=== PATIENT | female | born 1955 | race Caucasian/White ===

== ENCOUNTER 2019-03-15 05:51 | Emergency (ER) | payer OTHER ==
[~2019-03-15] VITALS: Ht 167.6 cm; Wt 70.5 kg
[2019-03-15] MEDS ORDERED: LISI-538 PO (05:57)
[2019-03-15] MEDS ORDERED: NS 500 ML IV ONE (06:30)
[2019-03-15] MEDS: GASTROGRAFIN SOLUTION 30ML PO SCH ×2 (07:11→07:43)
[2019-03-15 07:34] LABS: ALBUMIN 3.6 GM/DL (3.2-5.2); ALT/SGPT 28 U/L (12-78); BILIRUBIN,DIRECT 0.1 MG/DL (0.0-0.2); BILIRUBIN,TOTAL 0.5 MG/DL (0.2-1.0); BLOOD UREA NITROGEN 22 MG/DL (7-18); CALCIUM LEVEL 8.9 MG/DL (8.8-10.2); CARBON DIOXIDE LEVEL 27 MEQ/L (21-32); CHLORIDE LEVEL 103 MEQ/L (98-107); CREATININE FOR GFR 0.86 MG/DL (0.55-1.30); GLOMERULAR FILTRATION RATE > 60.0 (>45); GLUCOSE, FASTING 108 MG/DL (70-100); LIPASE 73 U/L (73-393); POTASSIUM SERUM 4.1 MEQ/L (3.5-5.1); SODIUM LEVEL 140 MEQ/L (136-145); TOTAL PROTEIN 7.3 GM/DL (6.4-8.2)
[2019-03-15 07:58] LABS: BASO % 0.3 % (0.0-1.0); EOS # 0.1 10^3/uL (0.0-0.5); EOS % 0.4 % (0.0-3.0); HEMATOCRIT 45.7 % (36.0-47.0); HEMOGLOBIN 14.5 g/dl (12.0-15.5); LYMPH # 1.3 10^3/uL (1.5-5.0); LYMPH % 9.5 % (24.0-44.0); MEAN CORPUSCULAR HEMOGLOBIN 30.7 pg (27.0-33.0); MEAN CORPUSCULAR HGB CONC 31.7 g/dl (32.0-36.5); MEAN CORPUSCULAR VOLUME 96.8 fl (80.0-96.0); MONO # 0.8 10^3/uL (0.0-0.8); MONO % 5.9 % (0.0-5.0); NEUTROPHILS # 11.8 10^3/uL (1.5-8.5); NEUTROPHILS % 83.5 % (36.0-66.0); PLATELET COUNT, AUTOMATED 257 10^3/uL (150-450); RED BLOOD COUNT 4.72 10^6/uL (4.00-5.40); WHITE BLOOD COUNT 14.1 10^3/uL (4.0-10.0)
[2019-03-15] MEDS ORDERED: ISOVUE-370 76% 100ML VIAL (Q9967) As Ordered ONE (07:58)
[2019-03-15 08:10] LABS: INR 1.04; PROTHROMBIN TIME 13.4 SECONDS (11.8-14.0)
[2019-03-15 08:11] LABS: PARTIAL THROMBOPLASTIN TIME 33.8 SECONDS (25.0-38.4)
--- NOTE | 2019-03-15 08:59 | REP ---
CT abdomen and pelvis with IV and oral contrast: History: Rectal bleeding. No comparison study. CT contrast dose: 100 mL of intravenous Isovue 370. CT findings: Digital preliminary psych rn radiograph is unremarkable. Normal bowel gas pattern. The lung bases are clear except for some mild linear plate-like atelectasis versus fibrosis. No pleural effusion is seen. There is a 1.1 cm cyst in the left lobe of the liver. The liver is otherwise homogeneous in texture and normal in size. Spleen is unremarkable. No adrenal lesion is seen. No abnormalities noted in the pancreas or in the gallbladder. There are tiny cortical cysts in the kidneys. There is no evidence of hydronephrosis. The kidneys enhance symmetrically and are otherwise morphologically intact. No retroperitoneal mass or adenopathy is observed. No uterine or ovarian abnormality is seen. Urinary bladder is intact. A normal short appendix is seen in the right lower quadrant. Small bowel loops are unremarkable. There is moderate mural thickening and pericolonic streaking is seen throughout the descending colon and sigmoid colon consistent with enterocolitis. No obstructive lesion is seen. There is no evidence of diverticulosis. No evidence of free air or abnormal fluid collection. Study is otherwise unremarkable. No abdominal wall defect or bony destructive lesion. Impression: Moderate mural thickening and pericolonic streaking throughout the left colon consistent with enterocolitis. Electronically Signed by Leoncio Hernández MD 03/15/2019 12:36 P
[2019-03-15] MEDS ORDERED: NS 1,000 ML IV ONE (09:00)
[2019-03-15] MEDS ORDERED: CIPROFLOXACIN 500 MG TAB PO ONE (09:45)
[2019-03-15] MEDS ORDERED: metroNIDAZOLE (FLAGYL) 500 MG TAB PO ONE (09:45)
[2019-03-15 10:14] VITALS: BP 134/67
[2019-03-15] MEDS ORDERED: FLAG500T PO (10:52)
[2019-03-15] MEDS ORDERED: CIPR-249 PO (10:52)
== END 2019-03-15 11:05 | disposition home or self-care (01) ==
LOC: M ED 05:51
DX: K62.5 Hemorrhage of anus and rectum (principal); R10.32 Left lower quadrant pain; K52.9 Noninfective gastroenteritis and colitis, unspecified; I10 Essential (primary) hypertension; Z79.899 Other long term (current) drug therapy
CPT/HCPCS: 36415; 74177; 80048; 80076; 83605; 83690; 85025; 85610; 85730; 86850; 86900; 86901; 87507; 96360; 96361; 99284; Q9963; Q9967

== ENCOUNTER → 2019-09-19 | Outpatient (REF) | payer OTHER ==
[~2019-09-19] MED LIST: CIPR-249 PO; FLAG500T PO; LISI-538 PO
== END ==
LOC: M LAB REF 17:45
PROVIDERS: ATTEND Physician Assistant
DX: B07.9 Viral wart, unspecified (principal)

== ENCOUNTER 2020-05-19 09:06 | Emergency (ER) | payer OTHER ==
[~2020-05-19] VITALS: Ht 167.6 cm; Wt 69.3 kg
[~2020-05-19 09:06] MED LIST changes: -LISI-538 PO; +LISI20TA33 PO
--- OUTSIDE RECORDS SUMMARY | 2020-05-19 09:12 | CCD ---
Author Author [facility] [employer] [facility] [employer] Organization [facility] [place] [employer] Address Unknown Phone Unavailable Care Team Providers Care Party Plan Sales Agent Name Role Phone Kaci Kline Unavailable PROBLEMS Type Condition ICD9-CM Code [id number] Code Onset Dates Condition S tatus SNOMED Code Notes Problem Esophageal reflux 530.81 Active 930507573 Problem Unspecified essential hypertension 401.9 Activ e [id number] Suboptimally controlled. I advised Jessica that if just running around causes her blood pressure to be elevated, she likely is spending quite a bit of time with elevated blood pressure. I've asked her to increase her lisinopril 20 mg tablets to one and one half daily, come in in a few weeks for a courtesy blood pressure check, and revisit in 3 months ALLERGIES No Known Allergies ENCOUNTERS from 1957 to 2020-04-17 Encounter Location Date Provider Diagnosis [facility] [address] [address] Apr, Kaci Kline IMMUNIZATIONS No Information SOCIAL HISTORY Tobacco Use: Social History Observation Description Date Details (start date - stop date) Never Smoker Sex Assigned At : Social History Observation Description Sex Assigned At Unknown Tobacco Use: Question Answer Notes Are you a: never smoker REASON FOR REFERRAL No Information VITAL SIGNS No information MEDICATIONS Medication SIG (Take, Route, Frequency, Duration) Notes Start Da te End Date Status Ammonium Lactate 12 % 1 application Externally Twice a day Jan, Active Lisinopril 20 mg 1-1/2 tablets Orally Once a day for 90 day(s) Active Omeprazole 40 MG 1 capsule Orally Once a day for 30 day(s) Not-Taking Ammonium Lactate 12 % 1 application Externally Cuong ly once daily to damp skin on the legs for 30 days Jan, Active PROCEDURES No Information RESULTS No Results REASON FOR VISIT EYE LIFT MEDICAL (GENERAL) HISTORY Type Description Date Medical History hypertension Medical History GERD Medical History question of trigeminal neuralgia Surgical History No Surgical history information Goals Section No Information Health Concerns No Information MEDICAL EQUIPMENT No Information MENTAL STATUS No Information FUNCTIONAL STATUS No Information ASSESSMENTS No Information PLAN OF TREATMENT Medication Medication Name Sig Start Date Stop Date Ammonium Lactate 12 % 1 application Externally Cuong ly once daily to damp skin on the legs for 30 days Jan, Ammonium Lactate 12 % 1 application Externally Twice a day 16 2019 Next Appt Details Provider Name:Kaci Kline, 10:30:00 AM, [address] [facility], [address], [place], [address], Insurance Providers Payer Name Payer Address Payer Phone Insured Name Patient Relati onship to Insured Coverage Start Date Coverage End Date [employer] DEPT [address] [phone] JESSICA CHAPA
--- OUTSIDE RECORDS SUMMARY | 2020-05-19 09:12 | CCD ---
Author Author [facility] Organization [facility] Address Unknown Phone Unavailable Care Team Providers Care Patrol Mother Name Role Phone BANKS, JONA ANDRES PLUMBING INSPECTOR Unavailable Unavailable BANKS, JONA ANDRES PLUMBING INSPECTOR Unavailable Unavailable BANKS, JONA ANDRES PLUMBING INSPECTOR Unavailable Unavailable BANKS, JONA ANDRES PLUMBING INSPECTOR Unavailable Unavailable BANKS, JONA ANDRES PLUMBING INSPECTOR Unavailable Unavailable BANKS, JONA ANDRES PLUMBING INSPECTOR Unavailable Unavailable BANKS, JONA ANDRES PLUMBING INSPECTOR Unavailable Unavailable BANKS, JONA ANDRES PLUMBING INSPECTOR Unavailable Unavailable BANKS, JONA ANDRES PLUMBING INSPECTOR Unavailable Unavailable BANKS, JONA ANDRES PLUMBING INSPECTOR Unavailable Unavailable BANKS, JONA ANDRES PLUMBING INSPECTOR Unavailable Unavailable BANKS, JONA ANDRES PLUMBING INSPECTOR Unavailable Unavailable BANKS, JONA ANDRES PLUMBING INSPECTOR Unavailable Unavailable BANKS, JONA ANDRES PLUMBING INSPECTOR Unavailable Unavailable BANKS, JONA ANDRES PLUMBING INSPECTOR Unavailable Unavailable BANKS, JONA ANDRES PLUMBING INSPECTOR Unavailable Unavailable BANKS, JONA ANDRES PLUMBING INSPECTOR Unavailable Unavailable BANKS, JONA ANDRES PLUMBING INSPECTOR Unavailable Unavailable BANKS, JONA ANDRES PLUMBING INSPECTOR Unavailable Unavailable BANKS, JONA ANDRES PLUMBING INSPECTOR Unavailable Unavailable BANKS, OJNA ANDRES PLUMBING INSPECTOR Unavailable Unavailable BANKS, JONA ANDRES PLUMBING INSPECTOR Unavailable Unavailable BANKS, JONA ANDRES PLUMBING INSPECTOR Unavailable Unavailable CHARLES CARRILLO CDN, RD Unavailable CHARLES CARRILLO CDN, RD Unavailable CHARLES CARRILLO CDN, RD Unavailable Law, Reyna PLUMBING INSPECTOR Unavailable Unavailable Law, Reyna PLUMBING INSPECTOR Unavailable Unavailable Law, Reyna PLUMBING INSPECTOR Unavailable Unavailable Law, Reyna PLUMBING INSPECTOR Unavailable Unavailable Law, Reyna PLUMBING INSPECTOR Unavailable Unavailable Law, Reyna PLUMBING INSPECTOR Unavailable Unavailable Law, Reyna PLUMBING INSPECTOR Unavailable Unavailable Law, Reyna PLUMBING INSPECTOR Unavailable Unavailable Law, Reyna PLUMBING INSPECTOR Unavailable Unavailable Law, Reyna PLUMBING INSPECTOR Unavailable Unavailable Law, Reyna PLUMBING INSPECTOR Unavailable Unavailable Law, Reyna PLUMBING INSPECTOR Unavailable Unavailable Law, Reyna PLUMBING INSPECTOR Unavailable Unavailable Law, Reyna PLUMBING INSPECTOR Unavailable Unavailable Law, Reyna PLUMBING INSPECTOR Unavailable Unavailable Law, Reyna PLUMBING INSPECTOR Unavailable Unavailable Law, Reyna PLUMBING INSPECTOR Unavailable Unavailable Law, Reyna PLUMBING INSPECTOR Unavailable Unavailable Law, Reyna PLUMBING INSPECTOR Unavailable Unavailable Law, Reyna PLUMBING INSPECTOR Unavailable Unavailable Law, Reyna PLUMBING INSPECTOR Unavailable Unavailable Law, Reyna PLUMBING INSPECTOR Unavailable Unavailable Law, Reyna PLUMBING INSPECTOR Unavailable Unavailable Law, Reyna PLUMBING INSPECTOR Unavailable Unavailable Law, Reyna PLUMBING INSPECTOR Unavailable Unavailable Law, Reyna PLUMBING INSPECTOR Unavailable Unavailable Law, Reyna PLUMBING INSPECTOR Unavailable Unavailable Law, Reyna PLUMBING INSPECTOR Unavailable Unavailable Rg, P Joon DO Unavailable Unavailable Rg, P Joon DO Unavailable Unavailable Rg, P Joon DO Unavailable Unavailable Rg, P Joon DO Unavailable Unavailable Rg, P Joon DO Unavailable Unavailable Rg, P Joon DO Unavailable Unavailable Rg, P Joon DO Unavailable Unavailable Rg, P Joon DO Unavailable Unavailable Rg, P Joon DO Unavailable Unavailable Rg, P Joon DO Unavailable Unavailable Rg, P Joon DO Unavailable Unavailable Rg, P Joon DO Unavailable Unavailable Rg, P Joon DO Unavailable Unavailable Rg, P Joon DO Unavailable Unavailable Rg, P Joon DO Unavailable Unavailable Rg, P Joon DO Unavailable Unavailable Rg, P Joon DO Unavailable Unavailable Rg, P Joon DO Unavailable Unavailable Rg, P Joon DO Unavailable Unavailable Rg, P Joon DO Unavailable Unavailable Rg, P Joon DO Unavailable Unavailable Rg, P Joon DO Unavailable Unavailable Rg, P Joon DO Unavailable Unavailable Rg, P Joon DO Unavailable Unavailable Rg, P Joon DO Unavailable Unavailable Rg, P Joon DO Unavailable Unavailable Rg, P Joon DO Unavailable Unavailable Rg, P Joon DO Unavailable Unavailable Rg, P Joon DO Unavailable Unavailable Rg, P Joon DO Unavailable Unavailable Rg, P Joon DO Unavailable Unavailable Rg, P Joon DO Unavailable Unavailable Rg, P Joon DO Unavailable Unavailable Rg, P Joon DO Unavailable Unavailable Rg, P Joon DO Unavailable Unavailable Rg, P Joon DO Unavailable Unavailable Rg, P Joon DO Unavailable Unavailable Rg, P Joon DO Unavailable Unavailable Rg, P Joon DO Unavailable Unavailable Rg, P Joon DO Unavailable Unavailable Rg, P Joon DO Unavailable Unavailable Rg, P Joon DO Unavailable Unavailable Rg, P Joon DO Unavailable Unavailable Rg, P Joon DO Unavailable Unavailable Rg, P Joon DO Unavailable Unavailable Rg, P Joon DO Unavailable Unavailable Rg, P Joon DO Unavailable Unavailable Rg, P Joon DO Unavailable Unavailable Rg, P Joon DO Unavailable Unavailable Rg, P Joon DO Unavailable Unavailable Rg, P Joon DO Unavailable Unavailable Rg, P Joon DO Unavailable Unavailable Rg, P Joon DO Unavailable Unavailable Rg, P Joon DO Unavailable Unavailable Rg, P Joon DO Unavailable Unavailable Rg, P Joon DO Unavailable Unavailable Rg, P Joon DO Unavailable Unavailable Rg, P Joon DO Unavailable Unavailable Rg, P Joon DO Unavailable Unavailable Rg, P Joon DO Unavailable Unavailable Rg, P Joon DO Unavailable Unavailable Rg, P Joon DO Unavailable Unavailable Rg, P Joon DO Unavailable Unavailable Rg, P Joon DO Unavailable Unavailable Rg, P Joon DO Unavailable Unavailable Rg, P Joon DO Unavailable Unavailable Rg, P Joon DO Unavailable Unavailable Rg, P Joon DO Unavailable Unavailable BANKS, JONA ANDRES PLUMBING INSPECTOR Unavailable Unavailable BANKS, JONA ANDRES PLUMBING INSPECTOR Unavailable Unavailable BANKS, JONA ANDRES PLUMBING INSPECTOR Unavailable Unavailable BANKS, JONA ANDRES PLUMBING INSPECTOR Unavailable Unavailable BANKS, JONA ANDRES PLUMBING INSPECTOR Unavailable Unavailable BANKS, JONA ANDRES PLUMBING INSPECTOR Unavailable Unavailable BANKS, JONA ANDRES PLUMBING INSPECTOR Unavailable Unavailable BANKS, JONA ANDRES PLUMBING INSPECTOR Unavailable Unavailable BANKS, JONA ANDRES PLUMBING INSPECTOR Unavailable Unavailable BANKS, JONA ANDRES PLUMBING INSPECTOR Unavailable Unavailable BANKS, JONA ANDRES PLUMBING INSPECTOR Unavailable Unavailable BANKS, JONA ANDRES PLUMBING INSPECTOR Unavailable Unavailable BANKS, JONA ANDRES PLUMBING INSPECTOR Unavailable Unavailable BANKS, JONA ANDRES PLUMBING INSPECTOR Unavailable Unavailable BANKS, JONA ANDRES PLUMBING INSPECTOR Unavailable Unavailable BANKS, JONA ANDRES PLUMBING INSPECTOR Unavailable Unavailable BANKS, JONA ANDRES PLUMBING INSPECTOR Unavailable Unavailable BANKS, JONA ANDRES PLUMBING INSPECTOR Unavailable Unavailable BANKS, JONA ANDRES PLUMBING INSPECTOR Unavailable Unavailable BANKS, JONA ANDRES PLUMBING INSPECTOR Unavailable Unavailable BANKS, JONA ANDRES PLUMBING INSPECTOR Unavailable Unavailable BANKS, JONA ANDRES PLUMBING INSPECTOR Unavailable Unavailable BANKS, JONA ANDRES PLUMBING INSPECTOR Unavailable Unavailable Maring, Kevin PA Unavailable Unavailable Maring, Kevin PA Unavailable Unavailable Maring, Kevin PA Unavailable Unavailable Maring, Kevin PA Unavailable Unavailable Maring, Kevin PA Unavailable Unavailable Maring, Kevin PA Unavailable Unavailable Maring, Kevin PA Unavailable Unavailable Maring, Kevin PA Unavailable Unavailable Maring, Kevin PA Unavailable Unavailable Maring, Kevin PA Unavailable Unavailable Maring, Kevin PA Unavailable Unavailable Maring, Kevin PA Unavailable Unavailable Maring, Kevin PA Unavailable Unavailable Maring, Kevin PA Unavailable Unavailable Law, Reyna PLUMBING INSPECTOR Unavailable Unavailable Law, Reyna PLUMBING INSPECTOR Unavailable Unavailable Law, Reyna PLUMBING INSPECTOR Unavailable Unavailable Law, Reyna PLUMBING INSPECTOR Unavailable Unavailable Law, Reyna PLUMBING INSPECTOR Unavailable Unavailable Law, Reyna PLUMBING INSPECTOR Unavailable Unavailable Law, Reyna PLUMBING INSPECTOR Unavailable Unavailable Law, Reyna PLUMBING INSPECTOR Unavailable Unavailable Law, Ryena PLUMBING INSPECTOR Unavailable Unavailable Law, Reyna PLUMBING INSPECTOR Unavailable Unavailable Law, Reyna PLUMBING INSPECTOR Unavailable Unavailable Law, Reyna PLUMBING INSPECTOR Unavailable Unavailable Law, Reyna PLUMBING INSPECTOR Unavailable Unavailable Law, Reyna PLUMBING INSPECTOR Unavailable Unavailable Law, Reyna PLUMBING INSPECTOR Unavailable Unavailable Law, Reyna PLUMBING INSPECTOR Unavailable Unavailable Law, Reyna PLUMBING INSPECTOR Unavailable Unavailable Law, Reyna PLUMBING INSPECTOR Unavailable Unavailable Law, Reyna PLUMBING INSPECTOR Unavailable Unavailable Law, Reyna PLUMBING INSPECTOR Unavailable Unavailable Law, Reyna PLUMBING INSPECTOR Unavailable Unavailable Law, Reyna PLUMBING INSPECTOR Unavailable Unavailable Law, Reyna PLUMBING INSPECTOR Unavailable Unavailable Law, Reyna PLUMBING INSPECTOR Unavailable Unavailable Law, Reyna PLUMBING INSPECTOR Unavailable Unavailable Law, Reyna PLUMBING INSPECTOR Unavailable Unavailable Law, Reyna PLUMBING INSPECTOR Unavailable Unavailable Law, Reyna PLUMBING INSPECTOR Unavailable Unavailable Re-disclosure Warning The records that you are about to access may contain information from federally-assisted alcohol or drug abuse programs. If such information is present, then the following federally mandated warning applies: This information has been disclosed to you from records protected by federal confidentiality rules (42 CFR part 2). The federal rules prohibit you from making any further disclosure of this information unless further disclosure is expressly permitted by the written consent of the person to whom it pertains or as otherwise permitted by 42 CFR part 2. A general authorization for the release of medical or other information is NOT sufficient for this purpose. The Federal rules restrict any use of the information to criminally investigate or prosecute any alcohol or drug abuse patient.The records that you are about to access may contain highly sensitive health information, the redisclosure of which is protected by Article 27-F of the [facility] Public Health law. If you continue you may have access to information: Regarding HIV / AIDS; Provided by facilities licensed or operated by the [facility] Office of Mental Health; or Provided by the [facility] Office for People With Developmental Disabilities. If such information is present, then the following [facility] mandated warning applies: This information has been disclosed to you from confidential records which are protected by state law. State law prohibits you from making any further disclosure of this information without the specific written consent of the person to whom it pertains, or as otherwise permitted by law. Any unauthorized further disclosure in violation of state law may result in a fine or halfway sentence or both. A general authorization for the release of medical or other information is NOT sufficient authorization for further disc losure. Allergies and Adverse Reactions Type Description Substance Reaction Status Data Source(s ) No Known Allergies No Known Allergies [facility] SYSTEMIC NO ALLERGIES ON FILE NO ALLERGIES ON FILE [facility] Family History Family Member Name Family Member Gender Family Member Status Date o f Status Description Data Source(s) Unknown Male Problem [facility]ENT ([facility]) Encounters Encounter Providers Location Date Indications Data Source(s ) O Attender: Kevin RAINES 05/19/19 08:23:28 AM EST - 05/19/2020 08:44:33 AM EST [facility] ([facility] ) O Attender: Kevin RAINES 05/16/19 09:04:35 AM EST - 05/16/2020 09:28:06 AM EST [facility] ([facility] ) [place] [address] [facility] [address] 04/14/2020 12:00:00 AM EST eCW1 ([facility]) Out[place] [address] [facility] [facility] [address] 02/16/2020 12:00:00 AM EST eCW1 ([facility]) Outpatient Attender: CHARLES CARRILLO CDN, RDConsultant: Joon Diez DO 11/24/2019 12:47:00 PM EDT - 11/24/2019 12:47:00 PM EDT [facility] Outpatient Attender: ANDRES BANKS NP Family [facility] 11/04/2019 09 :00:00 AM EDT MEDENT ([facility]) Outpatient Attender: ANDRES BANKS NPConsultant: Joon Diez DO 11/04/2019 08:54:00 AM EDT - 11/04/2019 08:54:00 AM EDT [facility] Outpatient [address] [facility] [address] 09/19/2019 12:00:00 AM EDT eCW1 ([facility]) Outpatient Attender: Reyna Ogden NP 09/15/2019 09:22:[address] [facility] E07.89 OUTPATIENT Attender: Reyna Ogden NPReferrer: Reyna Ogden NP [id number] 06/06/2019 01:18:00 PM EST - 06/06/2019 11:59:00 PM EST [facility] Patient discharged. 06/06/2019 01:17:55 PM [facility] Attender: Reyna Ogden NP [id number] 06/06/2019 01:10:32 PM EST [facility] 06/06/2019 01:10:22 PM [facility] Outpatient Attender: Reyna Ogden NP 06/04/2019 07:16 :00 AM EST Z13.220,Z76.89,R53.82,E78.5,I10,Z13.1 [facility] Z13.220,Z76.89,R53.82,E78.5,I10,Z13.1 Outpatient Attender: ANDRES BANKS NP 05/20/2019 11:52:[address] [facility] N76.0 Outpatient Attender: ANDRES BANKS NPConsultant: Joon Diez DO 05/20/2019 10:33:00 AM EST - 05/20/2019 10:33:00 AM EST [facility] Outpatient Attender: ANDRES BANKS PLUMBING INSPECTOR Family Practice 05/20/2019 09 :30:00 AM EST MEDENT ([facility]) Outpatient 04/01/2019 06:26:00 AM EST [facility] Medications Medication Brand Name Start Date Product Form Dose Route Admi nistrative Instructions Pharmacy Instructions Status Indications Reaction Description Data Source(s) 100 mg 05/16/2020 12:00:00 AM EST capsule 14 TAKE ONE CAPSULE BY MOUTH TWO TIMES A DAY FOR 7 DAYS TAKE ONE CAPSULE BY MOUTH TWO TIMES A DAY FOR 7 DAYS SOLD: 05/16/2020 [facility] 200 mg 05/16/2020 12:00:00 AM EST tablet 6 TAKE ONE TABLET BY MOUTH THREE TIMES A DAY FOR 2 DAYS TAKE ONE TABLET BY MOUTH THREE TIMES A DAY FOR 2 DAYS SOLD: 05/16/2020 [facility] 8 mg 05/16/2020 12:00:00 AM EST tablet,disintegrating [address] ONE TABLET UNDER THE TONGUE THREE TIMES A DAY FOR [address] ONE TABLET UNDER THE TONGUE THREE TIMES A DAY FOR 5 DAYS SOLD: 05/16/2020 [facility] 20 mg 04/30/2020 12:00:00 AM EST tablet 30 TAKE ONE TABLET BY MOUTH ONCE DAILY TAKE ONE TABLET BY MOUTH ONCE DAILY SOLD: 05/06/2020 [facility] 500 mg 03/09/2020 12:00:00 AM EST tablet 60 TAKE TWO TABLETS BY MOUTH TWICE A DAY NEEDED TAKE TWO TABLETS BY MOUTH TWICE A DAY NEEDED SOLD: 03/11/2020 [facility] 1,250 mcg (50,000 unit) 03/09/2020 12:00:00 AM EST capsule 4 TAKE 1 CAPSULES BY MOUTH WEEKLY WITH FOOD TAKE 1 CAPSULES BY MOUTH WEEKLY WITH FOOD SOLD: 03/11/2020 [facility] 12 % 02/17/2020 12:00:00 AM EST lotion 226 APPLY 1 APPLICATION ONCE DAILY TO DAMP SKIN ON THE LEGS FOR 30 DAYS APPLY 1 APPLICATION ONCE DAILY TO DAMP S KIN ON THE LEGS FOR 30 DAYS SOLD: 02/19/2020 [facility] ammonium lactate 120 MG/ML Topical Lotion Ammonium [place] k[place] 12 % Ammonium Lactate 12 % 02/16/2020 12:00:00 AM EST 1.0 {application} active Ammonium Lactate 12 % eCW1 ([facility]) ammonium lactate 120 MG/ML Topical Lotion Ammonium [place] 12 % Ammonium Lactate 12 % 02/16/2020 12:00:00 AM EST 1.0 {application} active Ammonium Lactate 12 % eCW1 ([facility]) ammonium lactate 120 MG/ML Topical Lotion Ammonium [place] 12 % Ammonium Lactate 12 % 02/16/2020 12:00:00 AM EST 1.0 {application} active Ammonium Lactate 12 % eCW1 ([facility]) ammonium lactate 120 MG/ML Topical Lotion Ammonium [place] 12 % Ammonium Lactate 12 % 02/16/2020 12:00:00 AM EST 1.0 {application} active Ammonium Lactate 12 % eCW1 ([facility]) 20 mg 01/16/2020 12:00:00 AM EDT tablet 30 TAKE ONE TABLET BY MOUTH ONCE DAILY TAKE ONE TABLET BY MOUTH ONCE DAILY SOLD: 02/19/2020 [facility] 20 mg 01/16/2020 12:00:00 AM EDT tablet 30 TAKE ONE TABLET BY MOUTH ONCE DAILY TAKE ONE TABLET BY MOUTH ONCE DAILY SOLD: 03/16/2020 [facility] 20 mg 01/16/2020 12:00:00 AM EDT tablet 30 TAKE ONE TABLET BY MOUTH ONCE DAILY TAKE ONE TABLET BY MOUTH ONCE DAILY SOLD: 01/19/2020 [facility] 1 gram 09/22/2019 12:00:00 AM EDT tablet 60 TAKE ONE TABLET BY MOUTH TWICE A DAY ON AN EMPTY STOMACH TAKE ONE TABLET BY MOUTH TWICE A DAY ON AN EMPTY STOMACH SOLD: 09/24/2019 [facility] 20 mg 06/07/2019 12:00:00 AM EST tablet 30 TAKE ONE TABLET BY MOUTH EVERY DAY TAKE ONE TABLET BY MOUTH EVERY DAY SOLD: 12/07/2019 [facility] 20 mg 06/07/2019 12:00:00 AM EST tablet 30 TAKE ONE TABLET BY MOUTH EVERY DAY TAKE ONE TABLET BY MOUTH EVERY DAY SOLD: 06/08/2019 [facility] 20 mg 06/07/2019 12:00:00 AM EST tablet 30 TAKE ONE TABLET BY MOUTH EVERY DAY TAKE ONE TABLET BY MOUTH EVERY DAY SOLD: 10/26/2019 [facility] 20 mg 06/07/2019 12:00:00 AM EST tablet 30 TAKE ONE TABLET BY MOUTH EVERY DAY TAKE ONE TABLET BY MOUTH EVERY DAY SOLD: 07/18/2019 [facility] 20 mg 06/07/2019 12:00:00 AM EST tablet 30 TAKE ONE TABLET BY MOUTH EVERY DAY TAKE ONE TABLET BY MOUTH EVERY DAY SOLD: 08/14/2019 [facility] 20 mg 06/07/2019 12:00:00 AM EST tablet 30 TAKE ONE TABLET BY MOUTH EVERY DAY TAKE ONE TABLET BY MOUTH EVERY DAY SOLD: 09/19/2019 [facility] Sulfamethoxazole 800 MG / Trimethoprim 160 MG Oral Tab let Sulfamethoxazole/Trimethoprim DS 05/26/2019 12:00:00 AM EST ORAL completed MEDENT ([facility]) Metronidazole 500 MG Oral Tablet Metronidazole 05/20/2019 12:00:00 AM EST ORAL completed MEDENT ([facility]) 500 mg 05/19/2019 12:00:00 AM EST tablet 6 TAKE ONE TABLET BY MOUTH TWICE A DAY FOR 3 DAYS TAKE ONE TABLET BY MOUTH TWICE A DAY FOR 3 DAYS SOLD: 2019 [facility] 500 mg 05/19/2019 12:00:00 AM EST tablet 6 TAKE ONE TABLET BY MOUTH TWICE A DAY FOR 3 DAYS TAKE ONE TABLET BY MOUTH TWICE A DAY FOR 3 DAYS SOLD: 2019 [facility] 500 mg 10/29/2018 12:00:00 AM EDT tablet 6 TAKE ONE TABLET BY MOUTH TWICE A DAY FOR 3 DAYS TAKE ONE TABLET BY MOUTH TWICE A DAY FOR 3 DAYS SOLD: 2019 [facility] Insurance Providers Payer name Policy type / Coverage type Policy ID Covered libertarian ID Covered libertarian's relationship to dao Policy Dao Plan Information [employer] [id number] SP [id number] [employer] [id number] Self [id number] [place] [id number] 18 [id number] [place] MAN -PHYSICIAN [place] [id number] 18 [id number] [employer] [id number] H[employer] [id number] Self [id number] [place] [id number] S [id number] H[employer]IN [id number] SP [id number] [employer] [id number] SP [id number] [employer] [place] Commercial [id number] Self [id number] [employer] [id number] SP [id number] [employer] [place] PPO 302/307 [id number] SP [id number] [facility] [id number] Problems, Conditions, and Diagnoses Code Display Name Description Problem Type Effective Dates Data Source(s) Z713 Dietary counseling and surveillance Dietary coun seling and surveillance Diagnosis 11/24/2019 12:47:00 PM EDT [facility] [id number] Body mass index (BMI) 26.0-26.9, adult B heydi mass index (BMI) 26.0-26.9, adult Diagnosis 11/24/2019 12:47:00 PM EDT [facility] E663 Overweight Overweight Diagnosis 11/24/2019 12:47:00 PM ED T [facility] [id number] Encounter for gynecological examination (general) (routine) without abnormal findings Encounter for gynecological examination (general) (routine) without abnormal findings Diagnosis 11/04/2019 08:54:00 AM EDT [facility] R31.9 Hematuria, unspecified Hematuria, unspecified Diagnosi s 06/06/2019 01:18:25 PM [facility] N39.0 Urinary tract infection, site not specif ied Urinary tract infection, site not specified Diagnosis 06/06/2019 01:18:25 PM [facility] N760 Acute vaginitis Acute vaginitis Diagnosis 05/20/2019 10:3 3:00 AM [facility] Results ID Date Data Source [id number] 11/04/2019 09:36:00 AM EDT MEDENT ([facility]) Name Value Range Interpretation Code Description Data Rylie rce(s) Supporting Document(s) Mammo Screening Bilateral with CAD [facility] ID Date Data Source [id number] 09/15/2019 10:33:[address] [facility] Name Value Range Interpretation Code Description Data Rylie rce(s) Supporting Document(s) Thyroxine (T4) free [Mass/volume] in Serum or Plasma 0.92 ng/dL 0.89- 1.[address] [facility] ID Date Data Source [id number] 09/16/2019 08:08:[address] [facility] Name Value Range Interpretation Code Description Data Rylie rce(s) Supporting Document(s) TRIIODOTHYRONINE, FREE, SERUM 3.2 pg/mL 2.0-4.4 [facility] Performed at: RN - [facility] [id number] [id number] Director: Camryn Brandt MD, Phone: [phone] ID Date Data Source [id number] 09/15/2019 10:33:[address] [facility] Name Value Range Interpretation Code Description Data Rylie rce(s) Supporting Document(s) Thyrotropin [Units/volume] in Serum or Plasma by Detec tion limit <= 0.005 mIU/L 0.95 u[iU]/mL [facility]35[facility] Date Data Source [id number] 06/07/2019 03:09:00 PM [facility] Name Value Range Interpretation Code Description Data Rylie rce(s) Supporting Document(s) Culture Result No Growth [facility] The above 1 analytes were performed by [facility] [id number], ,[place] [address] ID Date Data Source [id number] 06/04/2019 08:24:[address] [facility] @06/04/19 0806: UA W/ MICRO added. RFLXG = UMIC.Method of Collection:: Voided @06/04/19 0806: UA W/ MICRO added. RFLXG = UMIC.Method of Collection:: Voided Name Value Range Interpretation Code Description Data Rylie rce(s) Supporting Document(s) Leukocytes [#/volume] in Blood by Automated count 6.6 10*3/uL 4.45-[address] [facility] Erythrocytes [#/volume] in Blood by Automated count 4.41 10*6/uL 4.20 -5.40 [facility] Hemoglobin [Moles/volume] in Blood 13.7 g/dL 10.7-15.4 [facility] Hematocrit [Volume Fraction] of Blood by Automated count 42.4 % 3 7-[address] [facility] Erythrocyte mean corpuscular volume [Ent itic volume] in Cord blood by Automated count 96.1 fL 80-96 Above high normal [facility] Erythrocyte mean corpuscular hemoglobin [Entitic mass] by Automated count 31.1 pg 27-31 Above high normal [facility] spital Erythrocyte mean corpuscular hemoglobin concentration [Mass/volume] in Cord blood 32.3 g/dL 33-37 Below low normal [facility] Erythrocyte distribution width [Entitic volume] by Automated count 13 % 11-[address] [facility] Platelets [#/volume] in Blood by Automated count 263 10*3/uL 130-[address] [facility] Platelet mean volume [Entitic volume] in Blood 10.3 fL 9.1-13.[address] [facility] Neutrophils/100 leukocytes in Blood by Automated count 59.5 % 41- [address] [facility] Neutrophils [#/volume] in Blood by Automated count 3.9 U 1.7-7.[address] [facility] Lymphocytes/100 leukocytes in Blood by Automated count 30.9 % 14- [address] [facility] Lymphocytes [#/volume] in Blood by Automated count 2.0 U 0.6-4.[address] [facility] Monocytes/100 leukocytes in Blood by Automated count 6.1 % 4-[address] [facility] Monocytes [#/volume] in Blood by Automated count 0.4 U 0.2-1.[address] [facility] Eosinophils/100 leukocytes in Blood by Automated count 2.7 % 0-[address] [facility] Eosinophils [#/volume] in Blood by Automated count 0.2 U 0.0-0.[address] [facility] Basophils/100 leukocytes in Blood by Automated count 0.5 % 0.4-[address] [facility] Basophils [#/volume] in Blood by Automated count 0.0 U 0.0-0.[address] [facility] NUCLEATED RED BLOOD CELL 0 % [facility] NUCLEATED RED BLOOD CELL# 0 U [facility] Immature granulocytes [Presence] in Blood by Automated count 0-[address] [facility] Immature granulocytes [#/volume] in Blood by Automated count 0.0 U 0-0.[address] [facility] Manual Differential panel - Blood NO [facility] ID Date Data Source [id number] 06/04/2019 08:42:[address] [facility] @06/04/19 0806: UA W/ MICRO added. RFLXG = UMIC.Method of Collection:: Voided @06/04/19 0806: UA W/ MICRO added. RFLXG = UMIC.Method of Collection:: Voided Name Value Range Interpretation Code Description Data Rylie e(s) Supporting Document(s) Hemoglobin A1c % 5.9 % 4.0-6.0 [facility] The following ranges may be u sed for interpretation of results: HGBA1C degree of glucose control: Greater than 8%: Action Suggested * Less than 7%: Goal of Diabetic Therapy Less than 6%: NormalFactors such as duration of diabetes, adherence to therapyand the age of the patient should also be considered inassessing the degree of blood glucose control.* High risk of developing intermediate complications such asretinopathy, nephropathy, neuropathy, cardiopathy, etc. Some danger of hypoglycemic reaction in Type I diabetics.Some glucose intolerant individuals and "Sub Clinical"diabetics may demonstrate HGBA1C levels in this area. Glucose mean value [Moles/volume] in Blood Estimated f rom glycated hemoglobin 123 mg/dL [facility] l An A1C of 7% - the goal of diabetic ther apy - is equivalentto an EAG of 154 mg/dl. ID Date Data Source [id number] 06/04/2019 09:03:[address] [facility] @06/04/19 0806: UA W/ MICRO added. RFLXG = UMIC.Method of Collection:: Voided @06/04/19 0806: UA W/ MICRO added. RFLXG = UMIC.Method of Collection:: Voided Name Value Range Interpretation Code Description Data [facility](s) Supporting Document(s) Urea nitrogen [Mass/volume] in Serum or Plasma 21 mg/dL 9-[address] [facility] Sodium [Moles/volume] in Serum or Plasma 138 mmol/L 132-[address] [facility] Potassium [Moles/volume] in Serum or Plasma 4.6 mmol/L 3.5-5.5 [facility] Chloride [Moles/volume] in Serum or Plasma 105 mmol/L 99-[address] [facility] Carbon dioxide, total [Moles/volume] in Serum or Plasma 30 mmol/L 20 -[address] [facility] Anion gap in Serum or Plasma 8 mmol/L 8-16 N [facility] Glucose [Mass/volume] in Serum or Plasma 101 mg/dL 74-[address] [facility] Creatinine 0.7 mg/dL 0.5-1.1 [facility] Glomerular filtration rate/1.73 sq M.pre dicted [Volume Rate/Area] in Serum or Plasma Greater Than [address] [facility] Alanine aminotransferase [Enzymatic acti vity/volume] in Serum or Plasma by With P-5'-P 42 U/L 10-49 N [facility] ital Aspartate aminotransferase [Enzymatic ac tivity/volume] in Serum or Plasma by With P-5'-P 23 U/L 0-33 N [facility] pital Alkaline phosphatase [Enzymatic activity/volume] in Serum or Plasma 112 U/L 45-[address] [facility] Calcium [Mass/volume] in Serum or Plasma 8.5 mg/dL 8.5-10.1 [facility] Bilirubin.total [Mass/volume] in Serum or Plasma 0.4 mg/dL 0.3-1.2 [facility] Albumin [Mass/volume] in Serum or Plasma by Bromocresol purple (BCP) dye binding method 3.6 g/dL 3.2-4.8 N [facility] ital Protein [Mass/volume] in Serum or Plasma 7.0 g/dL 5.7-8.2 [facility] ID Date Data Source [id number] 06/05/2019 02:07:00 PM [facility] @06/04/19 0806: UA W/ MICRO added. RFLXG = UMIC.Method of Collection:: Voided @06/04/19 0806: UA W/ MICRO added. RFLXG = UMIC.Method of Collection:: Voided Name Value Range Interpretation Code Description Data Rylie rce(s) Supporting Document(s) Parathyrin.intact [Mass/volume] in Serum or Plasma 24 pg/mL 15-65 [facility] Performed at: RN - [facility] [address] [id number] Director: Camryn Brandt MD, Phone: [phone] ID Date Data Source [id number] 06/04/2019 09:03:00 AM [facility] @06/04/19 0806: UA W/ MICRO added. RFLXG = UMIC.Method of Collection:: Voided @06/04/19 0806: UA W/ MICRO added. RFLXG = UMIC.Method of Collection:: Voided Name Value Range Interpretation Code Description Data Rylie rce(s) Supporting Document(s) Triglycerides 87 mg/dL 0-150 N [facility] Cholesterol 194 mg/dL 120-200 N [facility] HDL Cholesterol 63 mg/dL [facility] HDL Less than 40 mg/dL: Major risk for CHDHDL Greater than 59 mg/dL: Low risk for CHD LDL Cholesterol, Calc 114 mg/dL 0-[address] [facility] ID Date Data Source [id number] 06/05/2019 02:07:00 PM [facility] @06/04/19 0806: UA W/ MICRO added. RFLXG = UMIC.Method of Collection:: Voided @06/04/19 0806: UA W/ MICRO added. RFLXG = UMIC.Method of Collection:: Voided Name Value Range Interpretation Code Description Data Rylie rce(s) Supporting Document(s) 25-Hydroxyvitamin D2+25-Hydroxyvitamin D3 [Mass/volume ] in Serum or Plasma 43.0 ng/mL 30.0-100.0 [facility] Vitamin D deficiency has been defined by the [place] [employer] and an Endocrine Society practice guideline as alevel of serum 25-OH vitamin D less than 20 ng/mL (1,2).The Endocrine Society went on to further define vitamin Dinsufficiency as a level between 21 and 29 ng/mL (2).1. IOM ([place] [employer]). 2010. Dietary reference intakes for calcium and D. [place]: The National Academies Press.2. Edson MF, Feroz NC, Sandra-Leandro MONIQUE, et al. Evaluation, treatment, and prevention of vitamin D deficiency: an Endocrine Society clinical practice guideline. JCEM. 2010; 96(7):1911- 30.Performed at: RN - [facility] [place] [id number] Director: Camryn Brandt MD, Phone: [phone] ID Date Data Source [id number] 06/04/2019 09:03:00 AM [facility] @06/04/19 0806: UA W/ MICRO added. RFLXG = UMIC.Method of Collection:: Voided @06/04/19 0806: UA W/ MICRO added. RFLXG = UMIC.Method of Collection:: Voided Name Value Range Interpretation Code Description Data Rylie rce(s) Supporting Document(s) Magnesium [Mass/volume] in Serum or Plasma 2.1 mg/dL 1.3-2.[address] [facility] ID Date Data Source [id number] 06/04/2019 09:03:00 AM [facility] @06/04/19 0806: UA W/ MICRO added. RFLXG = UMIC.Method of Collection:: Voided @06/04/19 0806: UA W/ MICRO added. RFLXG = UMIC.Method of Collection:: Voided Name Value Range Interpretation Code Description Data Rylie rce(s) Supporting Document(s) Thyroxine (T4) free [Mass/volume] in Serum or Plasma 0.86 ng/dL 0.89-1.[address] [facility] ID Date Data Source [id number] 06/04/2019 09:03:00 AM [facility] @06/04/19 0806: UA W/ MICRO added. RFLXG = UMIC.Method of Collection:: Voided @06/04/19 0806: UA W/ MICRO added. RFLXG = UMIC.Method of Collection:: Voided Name Value Range Interpretation Code Description Data Rylie rce(s) Supporting Document(s) Thyrotropin [Units/volume] in Serum or Plasma by Detec tion limit <= 0.005 mIU/L 0.85 u[iU]/mL 0.35-5.50 [facility] al ID Date Data Source [id number] 06/04/2019 08:16:00 AM [facility] @06/04/19 0806: UA W/ MICRO added. RFLXG = UMIC.Method of Collection:: Voided @06/04/19 0806: UA W/ MICRO added. RFLXG = UMIC.Method of Collection:: Voided Name Value Range Interpretation Code Description Data Rylie rce(s) Supporting Document(s) Color of Urine [facility] Appearance of Urine CLEAR [facility] pH of Urine by Test strip 5.0 5-8 [facility] Specific gravity of Urine by Refractometry 1.020 1.005-1.030 [facility] Leukocyte esterase [Presence] in Urine by Test strip NEGAT ANNIE [facility] Nitrite [Presence] in Urine by Test strip NEGATIVE [facility] Protein [Presence] in Urine by Test strip NEGATIVE [facility] Glucose [Mass/volume] in Urine by Automated test strip NEGATIVE NEG ATIVE [facility] Ketones [Presence] in Urine by Test strip NEGATIVE [facility] Urobilinogen [Presence] in Urine 0.2-1 EU/dl [facility] Bilirubin.total [Presence] in Urine by Automated test strip NEGATIVE [facility] Erythrocytes [#/volume] in Urine by Test strip MODERATE N EGATIVE Above high normal [facility] @DO MICRO!!!! URINE MICROSCOPIC ADDED Microscopic Added [facility] ID Date Data Source [id number] 06/04/2019 08:16:[address] [facility] @06/04/19 0806: UA W/ MICRO added. RFLXG = UMIC.Method of Collection:: Voided @06/04/19 0806: UA W/ MICRO added. RFLXG = UMIC.Method of Collection:: Voided Name Value Range Interpretation Code Description Data Rylie rce(s) Supporting Document(s) Erythrocytes [#/volume] in Urine by Manual count 1-2 /hpf 0-5 [facility] Cells [Type] in Urine sediment by Light microscopy [facility] ID Date Data Source [id number] 05/20/2019 11:52:00 AM EST [facility] ([facility]) Name Value Range Interpretation Code Description Data Rylie rce(s) Supporting Document(s) Trimethoprim/Sulfamethoxazole Laboratory test result Susceptible. Indicates for microbiology susceptibilities only. [facility] ([facility]) N76.0 Ampicillin+Sulbactam [Susceptibility] by Minimum inhib itory concentration (HAROON) Laboratory test result Susceptible. Indicates for m icrobiology susceptibilities only. [facility] ([facility]) N76.0 Amoxicillin+Clavulanate [Susceptibility] by Minimum inhibitory concentration (HAROON) Laboratory test result Susceptible. Mary cates for microbiology susceptibilities only. [facility] ([facility]) N76.0 Ampicillin [Susceptibility] by Minimum inhibitory conc entration (HAROON) Laboratory test result Susceptible. Indicates for microbiology suscepti bilities only. [facility] ([facility]) N76.0 Ciprofloxacin [Susceptibility] by Minimum inhibitory c oncentration (HAROON) Laboratory test result Susceptible. Indicates for m icrobiology susceptibilities only. [facility] ([facility]) N76.0 Ceftriaxone [Susceptibility] by Minimum inhibitory con centration (HAROON) Laboratory test result Susceptible. Indicates for m icrobiology susceptibilities only. [facility] ([facility]) N76.0 Cefotaxime [Susceptibility] by Minimum inhibitory conc entration (HAROON) Laboratory test result Susceptible. Indicates for microbiology suscepti bilities only. [facility] ([facility]) N76.0 Imipenem [Susceptibility] by Minimum inhibitory concen tration (HAROON) Laboratory test result Susceptible. Indicates for microbiology suscepti bilities only. [facility] ([facility]) N76.0 Gentamicin [Susceptibility] by Minimum inhibitory conc entration (HAROON) Laboratory test result Susceptible. Indicates for microbiology suscepti bilities only. [facility] ([facility]) N76.0 Ertapenem [Susceptibility] by Minimum inhibitory iman ntration (HAROON) Laboratory test result Susceptible. Indicates for microbiology suscepti bilities only. [facility] ([facility]) N76.0 Tetracycline [Susceptibility] by Minimum inhibitory co ncentration (HAROON) Laboratory test result Susceptible. Indicates for m icrobiology susceptibilities only. [facility] ([facility]) N76.0 Nitrofurantoin [Susceptibility] by Minimum inhibitory concentration (HAROON) Laboratory test result Susceptible. Indicates for m icrobiology susceptibilities only. [facility] ([facility]) N76.0 Tobramycin [Susceptibility] by Minimum inhibitory conc entration (HAROON) Laboratory test result Susceptible. Indicates for microbiology suscepti bilities only. [facility] ([facility]) N76.0 Levofloxacin [Susceptibility] by Minimum inhibitory co ncentration (HAROON) Laboratory test result Susceptible. Indicates for m icrobiology susceptibilities only. [facility] ([facility]) N76.0 Cefepime [Susceptibility] by Minimum inhibitory concen tration (HAROON) Laboratory test result Susceptible. Indicates for microbiology suscepti bilities only. [facility] ([facility]) N76.0 Piperacillin+Tazobactam [Susceptibility] by Minimum inhibitory concentration (HAROON) Laboratory test result Susceptible. Mary cates for microbiology susceptibilities only. [facility] ([facility]) N76.0 ID Date Data Source [id number] 05/20/2019 11:52:00 AM EST [facility] ([facility]) Name Value Range Interpretation Code Description Data Rylie rce(s) Supporting Document(s) Bacteria identified in Urine by Culture Laboratory test result [facility] ([facility]) N76.0 ID Date Data Source [id number] 05/20/2019 11:52:00 AM EST [facility] ([facility]) Name Value Range Interpretation Code Description Data Rylie rce(s) Supporting Document(s) Bacteria identified in Urine by Culture Laboratory test result [facility] ([facility]) N76.0 Pender count Laboratory test result [facility] ([facility]) N76.0 ID Date Data Source [id number] 05/20/2019 11:52:00 AM EST [facility] ([facility]) Name Value Range Interpretation Code Description Data Rylie rce(s) Supporting Document(s) [facility] Urine Culture Laboratory test result [facility] ([facility]) .~.~N76.0 ID Date Data Source [id number] 05/26/2019 07:02:00 AM EST [facility] Name Value Range Interpretation Code Description Data Rylie rce(s) Supporting Document(s) [facility] URINE CULTURE [facility] _CULTURE URINE_ Result: TEST PERFORMED AT [address] [address] CLIA# [id number] SEE SCANNED REPORT ID Date Data Source [id number] 05/20/2019 11:51:00 AM EST [facility] ([facility]) Name Value Range Interpretation Code Description Data Rylie rce(s) Supporting Document(s) [facility] [place] Laboratory test result [facility] ([facility]) ID Date Data Source [id number] 05/20/2019 10:38:00 AM EST [facility] ([facility]) Name Value Range Interpretation Code Description Data Rylie rce(s) Supporting Document(s) Appearance of Urine Laboratory test result [facility] ([facility]) Spec [place] 1.020 [facility] ([facility]) Color of Urine Laboratory test result [facility] ([facility]) pH of Urine by Test strip 5 MEDE NT ([facility]) Nitrate [Presence] in Urine Laboratory test result [facility] ([facility]) Leukocytes Laboratory test result [facility] ([facility]) Urobilinogen Laboratory test result [facility] ([facility]) Inhouse Glucose Laboratory test result [facility] ([facility]) Ketones [Presence] in Urine by Test strip Laboratory test result [facility] ([facility]) Protein [Presence] in Urine by Test strip Laboratory test result [facility] ([facility]) Bilirubin.total [Presence] in Urine by Test strip Laboratory test res ult [facility] ([facility]) Blood type and Indirect antibody screen panel - Blood 50 [facility] ([facility]) Procedure Social History Code Duration Value Status Description Data Source(s ) Smoking 02/16/2020 12:00:00 AM EST Never Smoker completed Never S moker eCW1 ([facility]) Smoking 02/16/2020 12:00:00 AM EST Never Smoker completed Never S moker eCW1 ([facility]) Smoking 09/19/2019 12:00:00 AM EDT Never Smoker completed Never S jyotiker eCW1 ([facility]) Vital Signs ID Date Data Source UNK Name Value Range Interpretation Code Description Data Source(s) Diastolic blood pressure 74 mm[Hg] 74 mm[Hg] W1 ([facility]) Systolic blood pressure 126 mm[Hg] 126 mm[Hg] e CW1 ([facility]) Body mass index (BMI) [Ratio] 26.79 kg/m2 26.79 kg/m2 [facility] ([facility]) Body height 65 [in_i] 65 [in_i] [facility] ([facility]) Body weight 161 [lb_av] 161 [lb_av] [facility] ([facility]) Body surface area 1.77 m2 1.77 m2 [facility] ([facility]) Body mass index (BMI) [Ratio] 26.4 kg/m2 26.4 k g/m2 [facility] ([facility]) Body height 64.5 [in_i] 64.5 [in_i] [facility] ([facility]) 5'4.50" Body weight 70.762 kg 70.762 kg [facility] ([facility]) Body weight 156.00 [lb_av] 156.00 [lb_av] [facility] T ([facility]) Body temperature 98.2 [degF] 98.2 [degF] [facility] ([facility]) [facility] 58 [facility]min 58 [facility] Diastolic blood pressure 64 mm[Hg] 64 mm[Hg] [facility] ([facility]) Systolic blood pressure 117 mm[Hg] 117 mm[Hg] M EDENT ([facility]) Diastolic blood pressure 78 mm[Hg] 78 mm[Hg] [facility] ([facility]) Systolic blood pressure 124 mm[Hg] 124 mm[Hg] e CW1 ([facility]) Body mass index (BMI) [Ratio] 26.12 kg/m2 26.12 kg/m2 [facility] ([facility]) Body height 65 [in_i] 65 [in_i] eCW1 ([facility]) Body weight 157 [lb_av] 157 [lb_av] eCW1 ([facility]) Body surface area 1.80 m2 1.80 m2 [facility] ([facility]) Body mass index (BMI) [Ratio] 25.2 kg/m2 25.2 k g/m2 [facility] Body height 66 [in_i] 66 [in_i] [facility] ([facility]) 5'6" Body weight 70.762 kg 70.762 kg [facility] ([facility]) Body weight 156.00 [lb_av] 156.00 [lb_av] MEDEN T ([facility]) Heart rate 68 /min 68 /min [facility] Diastolic blood pressure 76 mm[Hg] 76 mm[Hg] [facility] ([facility]) Systolic blood pressure 128 mm[Hg] 128 mm[Hg] M EDENT ([facility]) Patient Treatment Plan of Care Planned Activity Planned Date Details Description Data Source (s) ammonium lactate 120 MG/ML Topical Lotion 02/16/2020 12:00:00 AM ES T eCW1 ([facility]) ammonium lactate 120 MG/ML Topical Lotion 02/16/2020 12:00:00 AM ES T eCW1 ([facility]) ammonium lactate 120 MG/ML Topical Lotion 02/16/2020 12:00:00 AM ES T eCW1 ([facility]) ammonium lactate 120 MG/ML Topical Lotion 02/16/2020 12:00:00 AM ES T eCW1 ([facility])
--- OUTSIDE RECORDS SUMMARY | 2020-05-19 09:12 | CCD ---
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 I advised Jessica that if [...] No Known Allergies ENCOUNTERS from 1955 to 2020-02-20 Encounter Location Date Provider Diagnosis [facility] Dermatology [address] [place] [address] Jan, Kaci Kline Seborrheic keratoses L82.1 ; Lentigines L81.4 ; Stucco keratoses L85.1 and Seborrheic keratoses, inflamed L82.0 IMMUNIZATIONS No Information SOCIAL HISTORY Tobacco Use: Social History Observation Description Date Details (start date - stop date) Never Smoker Sex Assigned At : Social History Observation Description Sex Assigned At Unknown Tobacco Use: Question Answer Notes Are you a: never smoker REASON FOR REFERRAL No Information VITAL SIGNS Weight 161 lbs Jan, Height 65 in Jan, BMI 26.79 kg/m2 Jan, Blood pressure systolic 126 mm Hg Jan, Blood pressure diastolic 74 mm Hg Jan, MEDICATIONS Medication SIG (Take, Route, Frequency, Duration) [...] Information RESULTS No Results REASON FOR VISIT f/u hydroquinone cream MEDICAL (GENERAL) HISTORY Type Description Date Medical History hypertension Medical History GERD Medical History question of trigeminal neuralgia Surgical History No Surgical history information Goals Section No Information Health Concerns No Information MEDICAL EQUIPMENT No Information MENTAL STATUS No Information FUNCTIONAL STATUS No Information ASSESSMENTS Encounter Date Diagnosis Assessment Notes Treatment Notes Treatm ent Clinical Notes Jan, Seborrheic keratoses (ICD-10 - L82.1) Benign Lesion Counseling. The patient was extensively counseled regarding the benign nature of the lesion but that skin cancer may arise in this area just as it would anywhere on their skin. For that reason, return to clinic was recommended for any acute changes, itching, burning, or bleeding. The patient was educated that benign lesions are not a covered insurance benefit and treatment would be elective and cosmetic. They expressed understanding. Jan, Lentigines (ICD-10 - L81.4) Benign Lesion Counseling. The patient was extensively counseled regarding the benign nature of the lesion but that skin cancer may arise in this area just as it would anywhere on their skin. For that reason, return to clinic was recommended for any acute changes, itching, burning, or bleeding. The patient was educated that benign lesions are not a covered insurance benefit and treatment would be elective and cosmetic. They expressed understanding. Jan, Stucco keratoses (ICD-10 - L85.1) Benign Lesion Counseling. The patient was extensively counseled regarding the benign nature of the lesion but that skin cancer may arise in this area just as it would anywhere on their skin. For that reason, return to clinic was recommended for any acute changes, itching, burning, or bleeding. The patient was educated that benign lesions are not a covered insurance benefit and treatment would be elective and cosmetic. They expressed understanding. Jan, Seborrheic keratoses, inflamed (ICD-10 - L82.0) Cryotherapy x [ 3] number of sites. [place] protocol was followed in compliance with [facility] standards. Patient was counseled regarding the indication for treatment (precancerous state for actinic keratosis or cosmetic reasons if done for seborrheic keratoses, acrochordons or warts) as well as, the method and expected results to include compromise of the skin barrier, bleeding, scarring/white area, redness at site, lesion recurrence, and pain. Patient was consented to the risks and benefits of the procedure and gave informed consent. Lesion(s) with locations as indicated in the physical examination were treated. Lesion(s) were treated with 2 cycles of liquid nitrogen with a thaw time of at least ten seconds. Therapy was applied in a pulsed fashion to minimize collateral tissue injury. Patient was instructed to use Vaseline ointment to the area(s) until healed. Patient tolerated the procedure well and left in stable condition. Pain before and after the procedure were assessed to not be significantly different than baseline. Jan, Other Cryotherapy x [ 2] number of sites. [place] protocol was followed in compliance with [facility] standards. Patient was counseled regarding the indication for treatment (precancerous state for actinic keratosis or cosmetic reasons if done for seborrheic keratoses, acrochordons or warts) as well as, the method and expected results to include compromise of the skin barrier, bleeding, scarring/white area, redness at site, lesion recurrence, and pain. Patient was consented to the risks and benefits of the procedure and gave informed consent. Lesion(s) with locations as indicated in the physical examination were treated. Lesion(s) were treated with 2 cycles of liquid nitrogen with a thaw time of at least ten seconds. Therapy was applied in a pulsed fashion to minimize collateral tissue injury. Patient was instructed to use Vaseline ointment to the area(s) until healed. Patient tolerated the procedure well and left in stable condition. Pain before and after the procedure were assessed to not be significantly different than baseline. Patient counseled on signs and symptoms of skin cancer including ABCDE's of Melanoma. Patient counseled to wear sunscreen or use sun protective clothing when outdoors. Avoid peak hours of sun between 10-2. Patient instructed to call with any new or changing lesions. PLAN OF TREATMENT Medication Medication Name Sig Start Date Stop Date Ammonium Lactate 12 % 1 application Externally Cuong ly once daily to damp skin on the legs for 30 days Jan, Ammonium Lactate 12 % 1 application Externally Twice a day 16 2019 Treatment Notes Assessment Notes Clinical Notes Seborrheic keratoses Benign Lesion Couns merrick. The patient was extensively counseled regarding the benign nature of the lesion but that skin cancer may arise in this area just as it would anywhere on their skin. For that reason, return to clinic was recommended for any acute changes, itching, burning, or bleeding. The patient was educated that benign lesions are not a covered insurance benefit and treatment would be elective and cosmetic. They expressed understanding. Lentigines Benign Lesion Counscristi alcaraz. The patient was extensively counseled regarding the benign nature of the lesion but that skin cancer may arise in this area just as it would anywhere on their skin. For that reason, return to clinic was recommended for any acute changes, itching, burning, or bleeding. The patient was educated that benign lesions are not a covered insurance benefit and treatment would be elective and cosmetic. They expressed understanding. Stucco keratoses Benign Lesion Counscristi alcaraz. The patient was extensively counseled regarding the benign nature of the lesion but that skin cancer may arise in this area just as it would anywhere on their skin. For that reason, return to clinic was recommended for any acute changes, itching, burning, or bleeding. The patient was educated that benign lesions are not a covered insurance benefit and treatment would be elective and cosmetic. They expressed understanding. Seborrheic keratoses, inflamed Cryothera py x [ 3] number of sites. [place] protocol was followed in compliance with [facility] standards. Patient was counseled regarding the indication for treatment (precancerous state for actinic keratosis or cosmetic reasons if done for seborrheic keratoses, acrochordons or warts) as well as, the method and expected results to include compromise of the skin barrier, bleeding, scarring/white area, redness at site, lesion recurrence, and pain. Patient was consented to the risks and benefits of the procedure and gave informed consent. Lesion(s) with locations as indicated in the physical examination were treated. Lesion(s) were treated with 2 cycles of liquid nitrogen with a thaw time of at least ten seconds. Therapy was applied in a pulsed fashion to minimize collateral tissue injury. Patient was instructed to use Vaseline ointment to the area(s) until healed. Patient tolerated the procedure well and left in stable condition. Pain before and after the procedure were assessed to not be significantly different than baseline. Next Appt Details 10 weeks Reason:ISK f/U Provider Name:Kaci Kline, 01:00:00 PM, [address] [place] [address], [address] [place] [address], [place], [address], Follow Up:10 weeksISK f/U Insurance Providers Payer Name Payer Address Payer Phone Insured Name Patient Relati onship to Insured Coverage Start Date Coverage End Date [facility] [employer] DEPT [address] [facility] [phone] JESSICA CHAPA self
--- NOTE | 2020-05-19 09:53 | REP ---
INDICATION: DYSPNEA/COUGH. COMPARISON: Comparison chest x-rays from 21 December 2005. TECHNIQUE: Portable upright AP chest radiograph. FINDINGS: EKG monitoring electrodes overlie the chest. Heart is not enlarged. Pleural angles are sharp. No infiltrate is seen in the lung donovan. Pulmonary vasculature is not increased. No significant bony abnormality. IMPRESSION: No active disease. <Electronically signed by Yoandy Hernández > 05/19/20 0949
[2020-05-19 09:59] LABS: BASO % 0.5 % (0.0-1.0); EOS % 0.3 % (0.0-3.0); HEMATOCRIT 45.4 % (36.0-47.0); HEMOGLOBIN 14.5 g/dl (12.0-15.5); LYMPH # 1.3 10^3/uL (1.5-5.0); LYMPH % 20.2 % (24.0-44.0); MEAN CORPUSCULAR HEMOGLOBIN 30.5 pg (27.0-33.0); MEAN CORPUSCULAR HGB CONC 31.9 g/dl (32.0-36.5); MEAN CORPUSCULAR VOLUME 95.4 fl (80.0-96.0); MONO # 0.4 10^3/uL (0.0-0.8); MONO % 6.2 % (2.0-8.0); NEUTROPHILS # 4.8 10^3/uL (1.5-8.5); NEUTROPHILS % 72.5 % (36.0-66.0); PLATELET COUNT, AUTOMATED 184 10^3/uL (150-450); RED BLOOD COUNT 4.76 10^6/uL (4.00-5.40); WHITE BLOOD COUNT 6.6 10^3/uL (4.0-10.0)
--- OUTSIDE RECORDS SUMMARY | 2020-05-19 09:59 | CCD ---
Author Author [facility] Organization [facility] Address Unknown Phone Unavailable Care Team Providers Care Performing Arts Road Manager Name Role Phone BANKS, JONA ANDRES YARN SKEINS EXAMINER Unavailable Unavailable BANKS, JONA ANDRES YARN SKEINS EXAMINER Unavailable Unavailable BANKS, JONA ANDRES YARN SKEINS EXAMINER Unavailable Unavailable BANKS, JONA ANDRES YARN SKEINS EXAMINER Unavailable Unavailable BANKS, JONA ANDRES YARN SKEINS EXAMINER Unavailable Unavailable BANKS, JONA ANDRES YARN SKEINS EXAMINER Unavailable Unavailable BANKS, JONA ANDRES YARN SKEINS EXAMINER Unavailable Unavailable BANKS, JONA ANDRES YARN SKEINS EXAMINER Unavailable Unavailable BANKS, JONA ANDRES YARN SKEINS EXAMINER Unavailable Unavailable BANKS, JONA ANDRES YARN SKEINS EXAMINER Unavailable Unavailable BANKS, JONA ANDRES YARN SKEINS EXAMINER Unavailable Unavailable BANKS, JONA ANDRES YARN SKEINS EXAMINER Unavailable Unavailable BANKS, JONA ANDRES YARN SKEINS EXAMINER Unavailable Unavailable BANKS, JONA ANDRES YARN SKEINS EXAMINER Unavailable Unavailable BANKS, JONA ANDRES YARN SKEINS EXAMINER Unavailable Unavailable BANKS, JONA ANDRES YARN SKEINS EXAMINER Unavailable Unavailable BANKS, JONA ANDRES YARN SKEINS EXAMINER Unavailable Unavailable BANKS, JONA ANDRES YARN SKEINS EXAMINER Unavailable Unavailable BANKS, JONA ANDRES YARN SKEINS EXAMINER Unavailable Unavailable BANKS, JONA ANDRES YARN SKEINS EXAMINER Unavailable Unavailable BANKS, JONA ANDRES YARN SKEINS EXAMINER Unavailable Unavailable BANKS, JONA ANDRES YARN SKEINS EXAMINER Unavailable Unavailable BANKS, JNOA ANDRES YARN SKEINS EXAMINER Unavailable Unavailable CHARLES CARRILLO CDN, RD Unavailable CHARLES CARRILLO CDN, RD Unavailable CHARLES CARRILLO CDN, RD Unavailable Law, Reyna YARN SKEINS EXAMINER Unavailable Unavailable Law, Reyna YARN SKEINS EXAMINER Unavailable Unavailable Law, Reyna YARN SKEINS EXAMINER Unavailable Unavailable Law, Reyna YARN SKEINS EXAMINER Unavailable Unavailable Law, Reyna YARN SKEINS EXAMINER Unavailable Unavailable Law, Reyna YARN SKEINS EXAMINER Unavailable Unavailable Law, Reyna YARN SKEINS EXAMINER Unavailable Unavailable Law, Reyna YARN SKEINS EXAMINER Unavailable Unavailable Law, Reyna YARN SKEINS EXAMINER Unavailable Unavailable Law, Reyna YARN SKEINS EXAMINER Unavailable Unavailable Law, Reyna YARN SKEINS EXAMINER Unavailable Unavailable Law, Reyna YARN SKEINS EXAMINER Unavailable Unavailable Law, Reyna YARN SKEINS EXAMINER Unavailable Unavailable Law, Reyna YARN SKEINS EXAMINER Unavailable Unavailable Law, Reyna YARN SKEINS EXAMINER Unavailable Unavailable Law, Reyna YARN SKEINS EXAMINER Unavailable Unavailable Law, Reyna YARN SKEINS EXAMINER Unavailable Unavailable Law, Reyna YARN SKEINS EXAMINER Unavailable Unavailable Law, Reyna YARN SKEINS EXAMINER Unavailable Unavailable Law, Reyna YARN SKEINS EXAMINER Unavailable Unavailable Law, Reyna YARN SKEINS EXAMINER Unavailable Unavailable Law, Reyna YARN SKEINS EXAMINER Unavailable Unavailable Law, Reyna YARN SKEINS EXAMINER Unavailable Unavailable Law, Reyna YARN SKEINS EXAMINER Unavailable Unavailable Law, Reyna YARN SKEINS EXAMINER Unavailable Unavailable Law, Reyna YARN SKEINS EXAMINER Unavailable Unavailable Law, Reyna YARN SKEINS EXAMINER Unavailable Unavailable Law, Reyna YARN SKEINS EXAMINER Unavailable Unavailable Rg, P Joon DO Unavailable Unavailable Rg, P Jono DO Unavailable Unavailable Rg, P Joon DO [...] Unavailable Rg, P Joon DO Unavailable Unavailable Gr, P Joon DO Unavailable Unavailable Rg, P [...] Joon DO Unavailable Unavailable BANKS, JONA ANDRES YARN SKEINS EXAMINER Unavailable Unavailable BANKS, JONA ANDRES YARN SKEINS EXAMINER Unavailable Unavailable BANKS, JONA ANDRES YARN SKEINS EXAMINER Unavailable Unavailable BANKS, JONA ANDRES YARN SKEINS EXAMINER Unavailable Unavailable BANKS, JONA ANDRES YARN SKEINS EXAMINER Unavailable Unavailable BANKS, JONA ANDRES YARN SKEINS EXAMINER Unavailable Unavailable BANKS, JONA ANDRES YARN SKEINS EXAMINER Unavailable Unavailable BANKS, JONA ANDRES YARN SKEINS EXAMINER Unavailable Unavailable BANKS, JONA ANDRES YARN SKEINS EXAMINER Unavailable Unavailable BANKS, JOAN ANDRES YARN SKEINS EXAMINER Unavailable Unavailable BANKS, JONA ANDRES YARN SKEINS EXAMINER Unavailable Unavailable BANKS, JONA ANDRES YARN SKEINS EXAMINER Unavailable Unavailable BANKS, JONA ANDRES YARN SKEINS EXAMINER Unavailable Unavailable BANKS, JONA ANDRES YARN SKEINS EXAMINER Unavailable Unavailable BANKS, JONA ANDRES YARN SKEINS EXAMINER Unavailable Unavailable BANKS, JONA ANDRES YARN SKEINS EXAMINER Unavailable Unavailable BANKS, JONA ANDRES YARN SKEINS EXAMINER Unavailable Unavailable BANKS, JONA ANDRES YARN SKEINS EXAMINER Unavailable Unavailable BANKS, JONA ANDRES YARN SKEINS EXAMINER Unavailable Unavailable BANKS, JONA ANDRES YARN SKEINS EXAMINER Unavailable Unavailable BANKS, JONA ANDRES YARN SKEINS EXAMINER Unavailable Unavailable BANKS, JONA ANDRES YARN SKEINS EXAMINER Unavailable Unavailable BANKS, JONA ANDRES YARN SKEINS EXAMINER Unavailable Unavailable Maring, Kevin PA Unavailable Unavailable [...] Maring, Kevin PA Unavailable Unavailable Law, Reyna YARN SKEINS EXAMINER Unavailable Unavailable Law, Reyna YARN SKEINS EXAMINER Unavailable Unavailable Law, Reyna YARN SKEINS EXAMINER Unavailable Unavailable Law, Reyna YARN SKEINS EXAMINER Unavailable Unavailable Law, Reyna YARN SKEINS EXAMINER Unavailable Unavailable Law, Reyna YARN SKEINS EXAMINER Unavailable Unavailable Law, Reyna YARN SKEINS EXAMINER Unavailable Unavailable Law, Reyna YARN SKEINS EXAMINER Unavailable Unavailable Law, Reyna YARN SKEINS EXAMINER Unavailable Unavailable Law, Reyna YARN SKEINS EXAMINER Unavailable Unavailable Law, Reyna YARN SKEINS EXAMINER Unavailable Unavailable Law, Reyna YARN SKEINS EXAMINER Unavailable Unavailable Law, Reyna YARN SKEINS EXAMINER Unavailable Unavailable Law, Reyna YARN SKEINS EXAMINER Unavailable Unavailable Law, Reyna YARN SKEINS EXAMINER Unavailable Unavailable Law, Reyna YARN SKEINS EXAMINER Unavailable Unavailable Law, Reyna YARN SKEINS EXAMINER Unavailable Unavailable Law, Reyna YARN SKEINS EXAMINER Unavailable Unavailable Law, Reyna YARN SKEINS EXAMINER Unavailable Unavailable Law, Reyna YARN SKEINS EXAMINER Unavailable Unavailable Law, Reyna YARN SKEINS EXAMINER Unavailable Unavailable Law, Reyna YARN SKEINS EXAMINER Unavailable Unavailable Law, Reyna YARN SKEINS EXAMINER Unavailable Unavailable Law, Reyna YARN SKEINS EXAMINER Unavailable Unavailable Law, Reyna YARN SKEINS EXAMINER Unavailable Unavailable Law, Reyna YARN SKEINS EXAMINER Unavailable Unavailable Law, Reyna YARN SKEINS EXAMINER Unavailable Unavailable Law, Reyna YARN SKEINS EXAMINER Unavailable Unavailable Re-disclosure Warning The records that [...] is protected by Article 27-F of the [facility] Public Health law. If you continue you may have access to information: Regarding HIV / AIDS; Provided by facilities licensed or operated by the [facility] Office of Mental Health; or Provided by the [facility] Office for People With Developmental Disabilities. If such information is present, then the following [facility] mandated warning applies: This information has [...] law may result in a fine or nursing home sentence or both. A general authorization for the release of medical or other information is NOT sufficient authorization for further disc losure. Allergies and Adverse Reactions Type Description Substance Reaction Status Data Source(s ) No Known Allergies No Known Allergies [facility] SYSTEMIC NO ALLERGIES ON FILE NO ALLERGIES ON FILE [facility] Family History Family Member Name Family Member Gender Family Member Status Date o f Status Description Data Source(s) Unknown Male Problem [facility] ([facility]) Encounters Encounter Providers Location Date Indications Data Source(s ) O Attender: Kevin RAINES 05/19/19 08:23:28 AM EST - 05/19/2020 08:44:33 AM EST [facility] ([facility] ) O Attender: Kevin RAINES 05/16/19 09:04:35 AM EST - 05/16/2020 09:28:06 AM EST [facility] ([facility] ) [place] [address] [place] [address] 04/14/2020 12:00:00 AM EST eCW1 (Count includes the [facility]) Outpatient [address] [address] 02/16/2020 12:00:00 AM EST eCW1 (Count includes the [facility]) Outpatient Attender: CHARLES CARRILLO CDN, RDConsultant: Joon Diez DO 11/24/2019 12:47:00 PM EDT - 11/24/2019 12:47:00 PM EDT [facility] Outpatient Attender: ANDRES BANKS NP Family [facility] 11/04/2019 09 :00:00 AM EDT [facility] ([facility]) Outpatient Attender: ANDRES BANKS NPConsultant: Joon Diez DO 11/04/2019 08:54:00 AM EDT - 11/04/2019 08:54:00 AM EDT [facility] Outpatient [address] [place] [address] 09/19/2019 12:00:00 AM EDT eCW1 (Count includes the [facility]) Outpatient Attender: Reyna Ogden NP 09/15/2019 09:22:00 AM EDT E07.89 [facility] E07.89 OUTPATIENT Attender: Reyna Ogden NPReferrer: Reyna Ogden NP [id number] 06/06/2019 01:18:00 PM EST - 06/06/2019 11:59:00 PM EST [facility] Patient discharged. 06/06/2019 01:17:55 PM [facility] Attender: Reyna Ogden NP 2E-TW 06/06/2019 01:10:32 PM [facility] 06/06/2019 01:10:22 PM [facility] Outpatient Attender: Reyna Ogden NP 06/04/2019 07:16 :00 AM EST Z13.220,Z76.89,R53.82,E78.5,I10,Z13.1 [facility] Z13.220,Z76.89,R53.82,E78.5,I10,Z13.1 Outpatient Attender: ANDRES BANKS NP 05/20/2019 11:52:00 AM EST N76.0 [facility] N76.0 Outpatient Attender: ANDRES BANKS NPConsultant: Joon Diez DO 05/20/2019 10:33:00 AM EST - 05/20/2019 10:33:00 AM EST [facility] Outpatient Attender: ANDRES BANKS YARN SKEINS EXAMINER Family Practice 05/20/2019 09 :30:00 AM EST [facility] ([facility]) Outpatient 04/01/2019 06:26:00 AM EST [place] [...] {application} active Ammonium Lactate 12 % eCW1 ([facility]) ammonium lactate 120 MG/ML Topical Lotion Ammonium [place] 12 % Ammonium Lactate 12 % 02/16/2020 12:00:00 AM EST 1.0 {application} active Ammonium Lactate 12 % eCW1 ([facility]) ammonium lactate 120 MG/ML Topical Lotion Ammonium [place] 12 % Ammonium Lactate 12 % 02/16/2020 12:00:00 AM EST 1.0 {application} active Ammonium Lactate 12 % eCW1 ([facility]) ammonium lactate 120 MG/ML Topical Lotion Ammonium [place] 12 % Ammonium Lactate 12 % 02/16/2020 12:00:00 AM EST 1.0 {application} active Ammonium Lactate 12 % eCW1 ([facility]) 20 mg 01/16/2020 12:00:00 AM EDT tablet [...] TABLET BY MOUTH EVERY DAY SOLD: 10/26/2019 [facility] 20 mg 06/07/2019 12:00:00 AM [...] 05/26/2019 12:00:00 AM EST ORAL completed [facility] ([facility]) Metronidazole 500 MG Oral Tablet Metronidazole 05/20/2019 12:00:00 AM EST ORAL completed [facility] ([facility]) 500 mg 05/19/2019 12:00:00 AM EST [...] type / Coverage type Policy ID Covered green party ID Covered green party's relationship to dao Policy Dao Plan Information H[employer]IN [id number] SP [id number] [employer] [id number] Self [id number] [place] [id number] 18 [id number] [place] MAN -PHYSICIAN [place] [id number] 18 [id number] [employer] [id number] H[employer]YIN [id number] Self [id number] [place] [id number] S [id number] HUSEYIN [id number] SP [id number] [employer] [id number] SP [id number] [place] Commercial [id number] Self [id number] [employer]IN [id number] SP [id number] [employer] [place] PPO 302/[id number] SP [id number] [facility] [id number] Problems, Conditions, and Diagnoses Code Display Name Description Problem Type Effective Dates Data Source(s) Z713 Dietary counseling and surveillance Dietary coun seling and surveillance Diagnosis 11/24/2019 12:47:00 PM EDT [facility] Z6826 Body mass index (BMI) 26.0-26.9, adult B heydi mass index (BMI) 26.0-26.9, adult Diagnosis 11/24/2019 12:47:00 PM EDT [facility] E663 Overweight Overweight Diagnosis 11/24/2019 12:47:00 PM ED T [facility] [id number] Encounter for gynecological examination (general) (routine) without abnormal findings Encounter for gynecological examination (general) (routine) without abnormal findings Diagnosis 11/04/2019 08:54:00 AM EDT [facility] R31.9 Hematuria, unspecified Hematuria, unspecified Diagnosi s 06/06/2019 01:18:25 PM [facility] N39.0 Urinary tract infection, site not specif ied Urinary tract infection, site not specified Diagnosis 06/06/2019 01:18:25 PM [facility] N760 Acute vaginitis Acute vaginitis Diagnosis 05/20/2019 10:3 3:00 AM [facility] Results ID Date Data Source [id number] 11/04/2019 09:36:00 AM EDT [facility] ([facility]) Name Value Range Interpretation Code Description Data Rylie rce(s) Supporting Document(s) Mammo Screening Bilateral with CAD Laboratory test result [facility] ([facility]) ID Date Data Source [id number] 09/15/2019 10:33:00 AM EDT [facility] Name Value Range Interpretation Code Description Data Rylie rce(s) Supporting Document(s) Thyroxine (T4) free [Mass/volume] in Serum or Plasma 0.92 ng/dL 0.89- 1.76 N [facility] ID Date Data Source [id number] 09/16/2019 08:08:00 AM EDT [facility] Name Value Range Interpretation Code Description Data Rylie rce(s) Supporting Document(s) TRIIODOTHYRONINE, FREE, SERUM 3.2 pg/mL 2.0-4.4 [facility] Performed at: RN - [facility] [address] [id number] Director: Camryn Brandt MD, Phone: [phone] ID Date Data Source [id number] 09/15/2019 10:33:00 AM EDT [facility] Name Value Range Interpretation Code Description Data Rylie rce(s) Supporting Document(s) Thyrotropin [Units/volume] in Serum or Plasma by Detec tion limit <= 0.005 mIU/L 0.95 u[iU]/mL [facility]35[facility] Date Data Source [id number] 06/07/2019 03:09:00 PM [facility] Name Value Range Interpretation Code Description Data Rylie rce(s) Supporting Document(s) Culture Result No Growth [facility] The above 1 analytes were performed by [facility] [email or web address], ,[place] [address] ID Date Data Source [id number] 06/04/2019 08:24:00 AM EST [facility] @06/04/19 0806: UA W/ MICRO added. RFLXG = UMIC.Method of Collection:: Voided @06/04/19 0806: UA W/ MICRO added. RFLXG = UMIC.Method of Collection:: Voided Name Value Range Interpretation Code Description Data Rylie rce(s) Supporting Document(s) Leukocytes [#/volume] in Blood by Automated count 6.6 10*3/uL 4.45-10 .71 N [facility] Erythrocytes [#/volume] in Blood by Automated count 4.41 10*6/uL 4.20 -5.40 N [facility] Hemoglobin [Moles/volume] in Blood 13.7 g/dL 10.7-15.4 [facility] Hematocrit [Volume Fraction] of Blood by Automated count 42.4 % 3 7-47 N [facility] Erythrocyte mean corpuscular volume [Ent itic volume] in Cord blood by Automated count 96.1 fL 80-[address] [facility] Erythrocyte mean corpuscular hemoglobin [Entitic mass] by Automated count 31.1 pg 27-31 Above high normal [facility] spital Erythrocyte mean corpuscular hemoglobin concentration [Mass/volume] in Cord blood 32.3 g/dL 33-37 Below low normal [facility] Erythrocyte distribution width [Entitic volume] by Automated count 13 % 11-15 N [facility] Platelets [#/volume] in Blood by Automated count 263 10*3/uL 130-472 N [facility] Platelet mean volume [Entitic volume] in Blood 10.3 fL 9.1-13.1 N [facility] Neutrophils/100 leukocytes in Blood by Automated count 59.5 % 41- 77 N [facility] Neutrophils [#/volume] in Blood by Automated count 3.9 U 1.7-7.6 N [facility] Lymphocytes/100 leukocytes in Blood by Automated count 30.9 % 14- 46 N [facility] Lymphocytes [#/volume] in Blood by Automated count 2.0 U 0.6-4.6 N [facility] Monocytes/100 leukocytes in Blood by Automated count 6.1 % 4-12 N [facility] Monocytes [#/volume] in Blood by Automated count 0.4 U 0.2-1.2 N [facility] Eosinophils/100 leukocytes in Blood by Automated count 2.7 % 0-7 N [facility] Eosinophils [#/volume] in Blood by Automated count 0.2 U 0.0-0.5 N [facility] Basophils/100 leukocytes in Blood by Automated count 0.5 % 0.4-1 .3 N [facility] Basophils [#/volume] in Blood by Automated count 0.0 U 0.0-0.2 N [facility] NUCLEATED RED BLOOD CELL 0 % [facility] NUCLEATED RED BLOOD CELL# 0 U [facility] Immature granulocytes [Presence] in Blood by Automated count 0-2 N [facility] Immature granulocytes [#/volume] in Blood by Automated count 0.0 U 0-0.1 N [facility] Manual Differential panel - Blood NO [facility] ID Date Data Source [id number] 06/04/2019 08:42:00 AM EST [facility] @06/04/19 0806: UA W/ MICRO added. RFLXG = UMIC.Method of Collection:: Voided @06/04/19 0806: UA W/ MICRO added. RFLXG = UMIC.Method of Collection:: Voided Name Value Range Interpretation Code Description Data Rylie [facility](s) Supporting Document(s) Hemoglobin A1c % 5.9 % 4.0-6.0 N [facility] The following ranges may be u sed for interpretation of results: HGBA1C degree of glucose control: Greater than 8%: Action Suggested * Less than 7%: Goal of Diabetic Therapy Less than 6%: NormalFactors such as duration of diabetes, adherence to therapyand the age of the patient should also be considered inassessing the degree of blood glucose control.* High risk of developing long goods drier complications such asretinopathy, nephropathy, neuropathy, cardiopathy, etc. Some danger of hypoglycemic reaction in Type I diabetics.Some glucose intolerant individuals and "Sub Clinical"diabetics may demonstrate HGBA1C levels in this area. Glucose mean value [Moles/volume] in Blood Estimated f rom glycated hemoglobin 123 mg/dL [facility] l An A1C of 7% - the goal of diabetic ther apy - is equivalentto an EAG of 154 mg/dl. ID Date Data Source [id number] 06/04/2019 09:03:00 AM EST [facility] @06/04/19 0806: UA W/ MICRO added. RFLXG = UMIC.Method of Collection:: Voided @06/04/19 0806: UA W/ MICRO added. RFLXG = UMIC.Method of Collection:: Voided Name Value Range Interpretation Code Description Data [facility](s) Supporting Document(s) Urea nitrogen [Mass/volume] in Serum or Plasma 21 mg/dL 9-23 N [facility] Sodium [Moles/volume] in Serum or Plasma 138 mmol/L 132-146 N [facility] Potassium [Moles/volume] in Serum or Plasma 4.6 mmol/L 3.5-5.5 [facility] Chloride [Moles/volume] in Serum or Plasma 105 mmol/L 99-109 N [facility] Carbon dioxide, total [Moles/volume] in Serum or Plasma 30 mmol/L 20 -31 N [facility] Anion gap in Serum or Plasma 8 mmol/L 8-16 N [facility] Glucose [Mass/volume] in Serum or Plasma 101 mg/dL 74-106 N [facility] Creatinine 0.7 mg/dL 0.5-1.1 [facility] Glomerular filtration rate/1.73 sq M.pre dicted [Volume Rate/Area] in Serum or Plasma Greater Than 60 ABOVE 60 [facility] Alanine aminotransferase [Enzymatic acti vity/volume] in Serum or Plasma by With P-5'-P 42 U/L 10-49 N [facility] ital Aspartate aminotransferase [Enzymatic ac tivity/volume] in Serum or Plasma by With P-5'-P 23 U/L 0-33 N [facility] pital Alkaline phosphatase [Enzymatic activity/volume] in Serum or Plasma 112 U/L 45-129 [facility] Calcium [Mass/volume] in Serum or Plasma 8.5 mg/dL 8.5-10.1 [facility] Bilirubin.total [Mass/volume] in Serum or Plasma 0.4 mg/dL 0.3-1.2 [facility] Albumin [Mass/volume] in Serum or Plasma by Bromocresol purple (BCP) dye binding method 3.6 g/dL 3.2-4.8 [facility] ital Protein [Mass/volume] in Serum or Plasma 7.0 g/dL 5.7-8.2 [facility] ID Date Data Source [id number] 06/05/2019 02:07:00 PM [facility] @06/04/19 0806: UA W/ MICRO added. RFLXG = UMIC.Method of Collection:: Voided @06/04/19 0806: UA W/ MICRO added. RFLXG = UMIC.Method of Collection:: Voided Name Value Range Interpretation Code Description Data Rylie rce(s) Supporting Document(s) Parathyrin.intact [Mass/volume] in Serum or Plasma 24 pg/mL 15-65 [facility] Performed at: RN - [facility] [address] [id number] Director: Camryn Brandt MD, Phone: [phone] ID Date Data Source [id number] 06/04/2019 09:03:00 AM [facility] @06/04/19 0806: UA W/ MICRO added. RFLXG = UMIC.Method of Collection:: Voided @06/04/19 0806: UA W/ MICRO added. RFLXG = UMIC.Method of Collection:: Voided Name Value Range Interpretation Code Description Data Rylie rce(s) Supporting Document(s) Triglycerides 87 mg/dL 0-150 N [facility] Ch[facility] 194 mg/dL 120-[address] [facility] HDL Cholesterol 63 mg/dL [facility] HDL Less than 40 mg/dL: Major risk for CHDHDL Greater than 59 mg/dL: Low risk for CHD LDL Cholesterol, Calc 114 mg/dL 0-100 Above high normal [facility] ID Date Data Source [id number] 06/05/2019 02:07:00 PM [facility] @06/04/19 0806: UA W/ MICRO added. RFLXG = UMIC.Method of Collection:: Voided @06/04/19 0806: UA W/ MICRO added. RFLXG = UMIC.Method of Collection:: Voided Name Value Range Interpretation Code Description Data Rylie rce(s) Supporting Document(s) 25-Hydroxyvitamin D2+25-Hydroxyvitamin D3 [Mass/volume ] in Serum or Plasma 43.0 ng/mL 30.0-100.0 [facility] Vitamin D deficiency has been defined by the [place] [employer] and an Endocrine Society practice guideline as alevel of serum 25-OH vitamin D less than 20 ng/mL (1,2).The Endocrine Society went on to further define vitamin Dinsufficiency as a level between 21 and 29 ng/mL (2).1. IOM ([place] [employer]). 2010. Dietary reference intakes for calcium and D. [place]: The National Academies Press.2. Edson MF, Feroz NC, Davin MONIQUE, et al. Evaluation, treatment, and prevention of vitamin D deficiency: an Endocrine Society clinical practice guideline. JCEM. 2010; 96(7):1911- 30.Performed at: RN - [facility] [place] [id number] Director: Camryn Brandt MD, Phone: [phone] ID Date Data Source [id number] 06/04/2019 09:03:00 AM [facility] @06/04/19 0806: UA W/ MICRO added. RFLXG = UMIC.Method of Collection:: Voided @06/04/19 0806: UA W/ MICRO added. RFLXG = UMIC.Method of Collection:: Voided Name Value Range Interpretation Code Description Data Rylie rce(s) Supporting Document(s) Magnesium [Mass/volume] in Serum or Plasma 2.1 mg/dL 1.3-2.7 N [facility] ID Date Data Source [id number] 06/04/2019 09:03:00 AM [facility] @06/04/19 0806: UA W/ MICRO added. RFLXG = UMIC.Method of Collection:: Voided @06/04/19 0806: UA W/ MICRO added. RFLXG = UMIC.Method of Collection:: Voided Name Value Range Interpretation Code Description Data Rylie rce(s) Supporting Document(s) Thyroxine (T4) free [Mass/volume] in Serum or Plasma 0.86 ng/dL 0.89-1.76 Below low normal [facility] ID Date Data Source [id number] 06/04/2019 09:03:00 AM [facility] @06/04/19 0806: UA W/ MICRO added. RFLXG = UMIC.Method of Collection:: Voided @06/04/19 0806: UA W/ MICRO added. RFLXG = UMIC.Method of Collection:: Voided Name Value Range Interpretation Code Description Data Rylie rce(s) Supporting Document(s) Thyrotropin [Units/volume] in Serum or Plasma by Detec tion limit <= 0.005 mIU/L 0.85 u[iU]/mL 0.35-5.50 [facility] al ID Date Data Source [id number] 06/04/2019 08:16:00 AM [facility] @06/04/19 0806: UA W/ MICRO added. RFLXG = UMIC.Method of Collection:: Voided @06/04/19 0806: UA W/ MICRO added. RFLXG = UMIC.Method of Collection:: Voided Name Value Range Interpretation Code Description Data Rylie rce(s) Supporting Document(s) Color of Urine [facility] Appearance of Urine CLEAR [facility] pH of Urine by Test strip 5.0 5-8 [facility] Specific gravity of Urine by Refractometry 1.020 1.005-1.030 [facility] Leukocyte esterase [Presence] in Urine by Test strip NEGAT ANNIE [facility] Nitrite [Presence] in Urine by Test strip NEGATIVE [facility] Protein [Presence] in Urine by Test strip NEGATIVE [facility] Glucose [Mass/volume] in Urine by Automated test strip NEGATIVE NEG ATIVE [facility] Ketones [Presence] in Urine by Test strip NEGATIVE [facility] Urobilinogen [Presence] in Urine 0.2-1 EU/dl [facility] Bilirubin.total [Presence] in Urine by Automated test strip NEGATIVE [facility] Erythrocytes [#/volume] in Urine by Test strip MODERATE N EGATIVE Above high normal [facility] @DO MICRO!!!! URINE MICROSCOPIC ADDED Microscopic Added [facility] ID Date Data Source [id number] 06/04/2019 08:16:00 AM EST [facility] @06/04/19 0806: UA W/ MICRO added. RFLXG = UMIC.Method of Collection:: Voided @06/04/19 0806: UA W/ MICRO added. RFLXG = UMIC.Method of Collection:: Voided Name Value Range Interpretation Code Description Data Rylie rce(s) Supporting Document(s) Erythrocytes [#/volume] in Urine by Manual count 1-2 /hpf 0-5 [facility] Cells [Type] in Urine sediment by Light microscopy [facility] ID Date Data Source [id number] 05/20/2019 11:52:00 AM EST [facility] ([facility]) Name Value Range Interpretation Code Description Data Rylie rce(s) Supporting Document(s) Trimethoprim/Sulfamethoxazole Laboratory test result Susceptible. Indicates for microbiology susceptibilities only. [facility] ([facility]) N76.0 Ampicillin+Sulbactam [Susceptibility] by Minimum inhib itory concentration (HAROON) Laboratory test result Susceptible. Indicates for m icrobiology susceptibilities only. [facility] ([facility]) N76.0 Amoxicillin+Clavulanate [Susceptibility] by Minimum inhibitory concentration (HAROON) Laboratory test result Susceptible. Mary cates for microbiology susceptibilities only. [facility] ([facility]) N76.0 Ampicillin [Susceptibility] by Minimum inhibitory conc entration (HAROON) Laboratory test result Susceptible. Indicates for microbiology suscepti bilities only. [facility] ([facility]) N76.0 Ciprofloxacin [Susceptibility] by Minimum inhibitory c oncentration ([facility]AROON) Laboratory test result Susceptible. Indicates for m icrobiology susceptibilities only. [facility] ([facility]) N76.0 Ceftriaxone [Susceptibility] by Minimum inhibitory con centration ([facility]AROON) Laboratory test result Susceptible. Indicates for m icrobiology susceptibilities only. [facility] ([facility]) N76.0 Cefotaxime [Susceptibility] by Minimum inhibitory conc entration (HAROON) Laboratory test result Susceptible. Indicates for microbiology suscepti bilities only. [facility] ([facility]) N76.0 Imipenem [Susceptibility] by Minimum inhibitory concen tration (HAROON) Laboratory test result Susceptible. Indicates for microbiology suscepti bilities only. [facility] ([facility]) N76.0 Gentamicin [Susceptibility] by Minimum inhibitory conc entration ([facility]AROON) Laboratory test result Susceptible. Indicates for microbiology suscepti bilities only. [facility] ([facility]) N76.0 Ertapenem [Susceptibility] by Minimum inhibitory iman ntration ([facility]AROON) Laboratory test result Susceptible. Indicates for microbiology suscepti bilities only. [facility] ([facility]) N76.0 Tetracycline [Susceptibility] by Minimum inhibitory co ncentration ([facility]AROON) Laboratory test result Susceptible. Indicates for m icrobiology susceptibilities only. [facility] ([facility]) N76.0 Nitrofurantoin [Susceptibility] by Minimum inhibitory concentration ([facility]AROON) Laboratory test result Susceptible. Indicates for m icrobiology susceptibilities only. [facility] ([facility]) N76.0 Tobramycin [Susceptibility] by Minimum inhibitory conc entration (HAROON) Laboratory test result Susceptible. Indicates for microbiology suscepti bilities only. [facility] ([facility]) N76.0 Levofloxacin [Susceptibility] by Minimum inhibitory co ncentration ([facility]AROON) Laboratory test result Susceptible. Indicates for m icrobiology susceptibilities only. [facility] ([facility]) N76.0 Cefepime [Susceptibility] by Minimum inhibitory concen tration (HAROON) Laboratory test result Susceptible. Indicates for microbiology suscepti bilities only. [facility] ([facility]) N76.0 Piperacillin+Tazobactam [Susceptibility] by Minimum inhibitory concentration ([facility]AROON) Laboratory test result Susceptible. Mary cates for microbiology susceptibilities only. [facility] ([facility]) N76.0 ID Date Data Source [id number] 05/20/2019 11:52:00 AM EST [facility] ([facility]) Name Value Range Interpretation Code Description Data Rylie rce(s) Supporting Document(s) Bacteria identified in Urine by Culture Laboratory test result [facility] ([facility]) N76.0 ID Date Data Source [id number] 05/20/2019 11:52:00 AM EST [facility] ([facility]) Name Value Range Interpretation Code Description Data Rylie rce(s) Supporting Document(s) Bacteria identified in Urine by Culture Laboratory test result [facility] ([facility]) N76.0 [place] count Laboratory test result [facility] ([facility]) N76.0 ID Date Data Source [id number] 05/20/2019 11:52:00 AM EST [facility] ([facility]) Name Value Range Interpretation Code Description Data Rylie rce(s) Supporting Document(s) [facility] Urine Culture Laboratory test result [facility] ([facility]) .~.~N76.0 ID Date Data Source [id number] 05/26/2019 07:02:00 AM EST [facility] Name Value Range Interpretation Code Description Data Rylie rce(s) Supporting Document(s) [facility] URINE CULTURE [facility] _CULTURE URINE_ Result: TEST PERFORMED AT [address] [address] CLIA# [id number] SEE SCANNED REPORT ID Date Data Source [id number] 05/20/2019 11:51:00 AM EST [facility] ([facility]) Name Value Range Interpretation Code Description Data Rylie rce(s) Supporting Document(s) [facility] [place] Laboratory test result [facility] ([facility]) ID Date Data Source [id number] 05/20/2019 10:38:00 AM EST [facility] ([facility]) Name Value Range Interpretation Code Description Data Rylie rce(s) Supporting Document(s) Appearance of Urine Laboratory test result [facility] ([facility]) Spec [place] 1.020 [facility] ([facility]) Color of Urine Laboratory test result [facility] ([facility]) pH of Urine by Test strip 5 [facility] NT ([facility]) Nitrate [Presence] in Urine Laboratory test result [facility] ([facility]) Leukocytes Laboratory test result [facility] ([facility]) Urobilinogen Laboratory test result [facility] ([facility]) Inhouse Glucose Laboratory test result [facility] ([facility]) Ketones [Presence] in Urine by Test strip Laboratory test result [facility] ([facility]) Protein [Presence] in Urine by Test strip Laboratory test result [facility] ([facility]) Bilirubin.total [Presence] in Urine by Test strip Laboratory test res ult [facility] ([facility]) Blood type and Indirect antibody screen panel - Blood 50 [facility] ([facility]) Procedure Social History Code Duration Value Status Description Data Source(s ) Smoking 02/16/2020 12:00:00 AM EST Never Smoker completed Never S moker eCW1 ([facility]) Smoking 02/16/2020 12:00:00 AM EST Never Smoker completed Never S moker eCW1 ([facility]) Smoking 09/19/2019 12:00:00 AM EDT Never Smoker completed Never S jyotiker eCW1 ([facility]) Vital Signs ID Date Data Source [id number] Name Value Range Interpretation Code Description Data Source(s) Diastolic blood pressure 74 mm[Hg] 74 mm[Hg] eCW1 ([facility]) Systolic blood pressure 126 mm[Hg] 126 mm[Hg] e CW1 ([facility]) Body mass index (BMI) [Ratio] 26.79 kg/m2 26.79 kg/m2 [facility] ([facility]) Body height 65 [in_i] 65 [in_i] W1 ([facility]) Body weight 161 [lb_av] 161 [lb_av] W1 ([facility]) Body surface area 1.77 m2 1.77 m2 [facility] ([facility]) Body mass index (BMI) [Ratio] 26.4 kg/m2 26.4 k g/m2 [facility] ([facility]) Body height 64.5 [in_i] 64.5 [in_i] [facility] ([facility]) 5'4.50" Body weight 70.762 kg 70.762 kg [facility] ([facility]) Body weight 156.00 [lb_av] 156.00 [lb_av] MED[facility] T ([facility]) Body temperature 98.2 [degF] 98.2 [degF] [facility] ([facility]) Heart rate 58 /min 58 /min [facility] ([facility]) Diastolic blood pressure 64 mm[Hg] 64 mm[Hg] [facility] ([facility]) Systolic blood pressure 117 mm[Hg] 117 mm[Hg] M EDENT ([facility]) Diastolic blood pressure 78 mm[Hg] 78 mm[Hg] [facility] ([facility]) Systolic blood pressure 124 mm[Hg] 124 mm[Hg] e CW1 ([facility]) Body mass index (BMI) [Ratio] 26.12 kg/m2 26.12 kg/m2 [facility] ([facility]) Body height 65 [in_i] 65 [in_i] eCW1 ([facility]) Body weight 157 [lb_av] 157 [lb_av] eCW1 ([facility]) Body surface area 1.80 m2 1.80 m2 [facility] ([facility]) Body mass index (BMI) [Ratio] 25.2 kg/m2 25.2 k g/m2 [facility] ([facility]) Body height 66 [in_i] 66 [in_i] [facility] ([facility]) 5'6" Body weight 70.762 kg 70.762 kg [facility] ([facility]) Body weight 156.00 [lb_av] 156.00 [lb_av] MED[facility] T ([facility]) Heart rate 68 /min 68 /min [facility] ([facility]) Diastolic blood pressure 76 mm[Hg] 76 mm[Hg] [facility] ([facility]) Systolic blood pressure 128 mm[Hg] 128 mm[Hg] M EDENT ([facility]) Patient Treatment Plan of Care Planned Activity Planned Date Details Description Data Source (s) ammonium lactate 120 MG/ML Topical Lotion 02/16/2020 12:00:00 AM ES T eCW1 ([facility]) ammonium lactate 120 MG/ML Topical Lotion 02/16/2020 12:00:00 AM ES T eCW1 ([facility]) ammonium lactate 120 MG/ML Topical Lotion 02/16/2020 12:00:00 AM ES T eCW1 ([facility]) ammonium lactate 120 MG/ML Topical Lotion 02/16/2020 12:00:00 AM ES T eCW1 ([facility])
[2020-05-19 10:09] LABS: INR 0.93; PROTHROMBIN TIME 12.7 SECONDS (12.5-14.3)
[2020-05-19 10:29] LABS: ALBUMIN 3.5 GM/DL (3.2-5.2); ALT/SGPT 25 U/L (12-78); BILIRUBIN,DIRECT < 0.1 MG/DL (0.0-0.2); BILIRUBIN,TOTAL 0.3 MG/DL (0.2-1.0); BLOOD UREA NITROGEN 12 MG/DL (7-18); CALCIUM LEVEL 8.5 MG/DL (8.8-10.2); CARBON DIOXIDE LEVEL 28 MEQ/L (21-32); CHLORIDE LEVEL 103 MEQ/L (98-107); CREATININE FOR GFR 0.87 MG/DL (0.55-1.30); GLOMERULAR FILTRATION RATE > 60.0 (>45); GLUCOSE, FASTING 100 MG/DL (70-100); NT-PRO BNP 59 PG/ML (<125); POTASSIUM SERUM 4.2 MEQ/L (3.5-5.1); SODIUM LEVEL 140 MEQ/L (136-145); THYROID STIMULATING HORMONE 0.709 uIU/ML (0.358-3.740); TOTAL PROTEIN 7.2 GM/DL (6.4-8.2)
[2020-05-19 11:04] LABS: D-DIMER QUANT 632.84 ng/ml (<500)
[2020-05-19] MEDS ORDERED: ONDANSETRON 4MG/2ML VIAL IV ONE (11:45)
[2020-05-19 13:43] VITALS: BP 151/74
--- OUTSIDE RECORDS SUMMARY | 2020-05-19 14:06 | CCD ---
Author Author [facility] Organization [facility] Address Unknown Phone Unavailable Care Team Providers Care Named Account Executive Name Role Phone BANKS, JONA ANDRES LICENSED PHYSICAL THERAPIST ASSISTANT Unavailable Unavailable BANKS, JONA ANDRES LICENSED PHYSICAL THERAPIST ASSISTANT Unavailable Unavailable BANKS, JONA ANDRES LICENSED PHYSICAL THERAPIST ASSISTANT Unavailable Unavailable BANKS, JONA ANDRES LICENSED PHYSICAL THERAPIST ASSISTANT Unavailable Unavailable BANKS, JONA ANDRES LICENSED PHYSICAL THERAPIST ASSISTANT Unavailable Unavailable BANKS, JONA ANDRES LICENSED PHYSICAL THERAPIST ASSISTANT Unavailable Unavailable BANKS, JONA ANDRES LICENSED PHYSICAL THERAPIST ASSISTANT Unavailable Unavailable BANKS, JONA ANDRES LICENSED PHYSICAL THERAPIST ASSISTANT Unavailable Unavailable BANKS, JONA ANDRES LICENSED PHYSICAL THERAPIST ASSISTANT Unavailable Unavailable BANKS, JONA ANDRES LICENSED PHYSICAL THERAPIST ASSISTANT Unavailable Unavailable BANKS, JONA ANDRES LICENSED PHYSICAL THERAPIST ASSISTANT Unavailable Unavailable BANKS, JONA ANDRES LICENSED PHYSICAL THERAPIST ASSISTANT Unavailable Unavailable BANKS, JONA ANDRES LICENSED PHYSICAL THERAPIST ASSISTANT Unavailable Unavailable BANKS, JONA ANDRES LICENSED PHYSICAL THERAPIST ASSISTANT Unavailable Unavailable BANKS, JONA ANDRES LICENSED PHYSICAL THERAPIST ASSISTANT Unavailable Unavailable BANKS, JONA ANDRES LICENSED PHYSICAL THERAPIST ASSISTANT Unavailable Unavailable BANKS, JONA ANDRES LICENSED PHYSICAL THERAPIST ASSISTANT Unavailable Unavailable BANKS, JONA ANDRES LICENSED PHYSICAL THERAPIST ASSISTANT Unavailable Unavailable BANKS, JONA ANDRES LICENSED PHYSICAL THERAPIST ASSISTANT Unavailable Unavailable BANKS, JONA ANDRES LICENSED PHYSICAL THERAPIST ASSISTANT Unavailable Unavailable BANKS, JONA ANDRES LICENSED PHYSICAL THERAPIST ASSISTANT Unavailable Unavailable BANKS, JONA ANDRES LICENSED PHYSICAL THERAPIST ASSISTANT Unavailable Unavailable BANKS, JONA ANDRES LICENSED PHYSICAL THERAPIST ASSISTANT Unavailable Unavailable CHARLES CARRILLO CDN, RD Unavailable CHARLES CARRILLO CDN, RD Unavailable CHARLES CARRILLO CDN, RD Unavailable Law, Reyna LICENSED PHYSICAL THERAPIST ASSISTANT Unavailable Unavailable Law, Reyna LICENSED PHYSICAL THERAPIST ASSISTANT Unavailable Unavailable Law, Reyna LICENSED PHYSICAL THERAPIST ASSISTANT Unavailable Unavailable Law, Reyna LICENSED PHYSICAL THERAPIST ASSISTANT Unavailable Unavailable Law, Reyna LICENSED PHYSICAL THERAPIST ASSISTANT Unavailable Unavailable Law, Reyna LICENSED PHYSICAL THERAPIST ASSISTANT Unavailable Unavailable Law, Reyna LICENSED PHYSICAL THERAPIST ASSISTANT Unavailable Unavailable Law, Reyna LICENSED PHYSICAL THERAPIST ASSISTANT Unavailable Unavailable Law, Reyna LICENSED PHYSICAL THERAPIST ASSISTANT Unavailable Unavailable Law, Reyna LICENSED PHYSICAL THERAPIST ASSISTANT Unavailable Unavailable Law, Reyna LICENSED PHYSICAL THERAPIST ASSISTANT Unavailable Unavailable Law, Reyna LICENSED PHYSICAL THERAPIST ASSISTANT Unavailable Unavailable Law, Reyan LICENSED PHYSICAL THERAPIST ASSISTANT Unavailable Unavailable Law, Reyna LICENSED PHYSICAL THERAPIST ASSISTANT Unavailable Unavailable Law, Reyna LICENSED PHYSICAL THERAPIST ASSISTANT Unavailable Unavailable Law, Reyna LICENSED PHYSICAL THERAPIST ASSISTANT Unavailable Unavailable Law, Reyna LICENSED PHYSICAL THERAPIST ASSISTANT Unavailable Unavailable Law, Reyna LICENSED PHYSICAL THERAPIST ASSISTANT Unavailable Unavailable Law, Reyna LICENSED PHYSICAL THERAPIST ASSISTANT Unavailable Unavailable Law, Reyna LICENSED PHYSICAL THERAPIST ASSISTANT Unavailable Unavailable Law, Reyna LICENSED PHYSICAL THERAPIST ASSISTANT Unavailable Unavailable Law, Reyna LICENSED PHYSICAL THERAPIST ASSISTANT Unavailable Unavailable Law, Reyna LICENSED PHYSICAL THERAPIST ASSISTANT Unavailable Unavailable Law, Reyna LICENSED PHYSICAL THERAPIST ASSISTANT Unavailable Unavailable Law, Reyna LICENSED PHYSICAL THERAPIST ASSISTANT Unavailable Unavailable Law, Reyna LICENSED PHYSICAL THERAPIST ASSISTANT Unavailable Unavailable Law, Reyna LICENSED PHYSICAL THERAPIST ASSISTANT Unavailable Unavailable Law, Reyna LICENSED PHYSICAL THERAPIST ASSISTANT Unavailable Unavailable Rg, P Joon DO Unavailable [...] Joon DO Unavailable Unavailable BANKS, JONA ANDRES LICENSED PHYSICAL THERAPIST ASSISTANT Unavailable Unavailable BANKS, JONA ANDRES LICENSED PHYSICAL THERAPIST ASSISTANT Unavailable Unavailable BANKS, JONA ANDRES LICENSED PHYSICAL THERAPIST ASSISTANT Unavailable Unavailable BANKS, JONA ANDRES LICENSED PHYSICAL THERAPIST ASSISTANT Unavailable Unavailable BANKS, JONA ANDRES LICENSED PHYSICAL THERAPIST ASSISTANT Unavailable Unavailable BANKS, JONA ANDRES LICENSED PHYSICAL THERAPIST ASSISTANT Unavailable Unavailable BANKS, JONA ANDRES LICENSED PHYSICAL THERAPIST ASSISTANT Unavailable Unavailable BANKS, JONA ANDRES LICENSED PHYSICAL THERAPIST ASSISTANT Unavailable Unavailable BANKS, JONA ANDRES LICENSED PHYSICAL THERAPIST ASSISTANT Unavailable Unavailable BANKS, JONA ANDRES LICENSED PHYSICAL THERAPIST ASSISTANT Unavailable Unavailable BANKS, JONA ANDRES LICENSED PHYSICAL THERAPIST ASSISTANT Unavailable Unavailable ABNKS, JONA ANDRES LICENSED PHYSICAL THERAPIST ASSISTANT Unavailable Unavailable BANKS, JONA ANDRES LICENSED PHYSICAL THERAPIST ASSISTANT Unavailable Unavailable BANKS, JONA ANDRES LICENSED PHYSICAL THERAPIST ASSISTANT Unavailable Unavailable BANKS, JONA ANDRES LICENSED PHYSICAL THERAPIST ASSISTANT Unavailable Unavailable BANKS, JONA ANDRES LICENSED PHYSICAL THERAPIST ASSISTANT Unavailable Unavailable BANKS, JONA ANDRES LICENSED PHYSICAL THERAPIST ASSISTANT Unavailable Unavailable BANKS, JONA ANDRES LICENSED PHYSICAL THERAPIST ASSISTANT Unavailable Unavailable BANKS, JONA ANDRES LICENSED PHYSICAL THERAPIST ASSISTANT Unavailable Unavailable BANKS, JONA ANDRES LICENSED PHYSICAL THERAPIST ASSISTANT Unavailable Unavailable BANKS, JONA ANDRES LICENSED PHYSICAL THERAPIST ASSISTANT Unavailable Unavailable BANKS, JONA ANDRES LICENSED PHYSICAL THERAPIST ASSISTANT Unavailable Unavailable BANKS, JONA ANDRES LICENSED PHYSICAL THERAPIST ASSISTANT Unavailable Unavailable Maring, Kevin PA Unavailable Unavailable [...] Maring, Kevin PA Unavailable Unavailable Law, Reyna LICENSED PHYSICAL THERAPIST ASSISTANT Unavailable Unavailable Law, Reyna LICENSED PHYSICAL THERAPIST ASSISTANT Unavailable Unavailable Law, Reyna LICENSED PHYSICAL THERAPIST ASSISTANT Unavailable Unavailable Law, Reyna LICENSED PHYSICAL THERAPIST ASSISTANT Unavailable Unavailable Law, Reyna LICENSED PHYSICAL THERAPIST ASSISTANT Unavailable Unavailable Law, Reyna LICENSED PHYSICAL THERAPIST ASSISTANT Unavailable Unavailable Law, Reyna LICENSED PHYSICAL THERAPIST ASSISTANT Unavailable Unavailable Law, Reyna LICENSED PHYSICAL THERAPIST ASSISTANT Unavailable Unavailable Law, Reyna LICENSED PHYSICAL THERAPIST ASSISTANT Unavailable Unavailable Law, Reyna LICENSED PHYSICAL THERAPIST ASSISTANT Unavailable Unavailable Law, Reyna LICENSED PHYSICAL THERAPIST ASSISTANT Unavailable Unavailable Law, Reyna LICENSED PHYSICAL THERAPIST ASSISTANT Unavailable Unavailable Law, Reyna LICENSED PHYSICAL THERAPIST ASSISTANT Unavailable Unavailable Law, Reyna LICENSED PHYSICAL THERAPIST ASSISTANT Unavailable Unavailable Law, Reyna LICENSED PHYSICAL THERAPIST ASSISTANT Unavailable Unavailable Law, Reyna LICENSED PHYSICAL THERAPIST ASSISTANT Unavailable Unavailable Law, Reyna LICENSED PHYSICAL THERAPIST ASSISTANT Unavailable Unavailable Law, Reyna LICENSED PHYSICAL THERAPIST ASSISTANT Unavailable Unavailable Law, Reyna LICENSED PHYSICAL THERAPIST ASSISTANT Unavailable Unavailable Law, Reyna LICENSED PHYSICAL THERAPIST ASSISTANT Unavailable Unavailable Law, Reyna LICENSED PHYSICAL THERAPIST ASSISTANT Unavailable Unavailable Law, Reyna LICENSED PHYSICAL THERAPIST ASSISTANT Unavailable Unavailable Law, Reyna LICENSED PHYSICAL THERAPIST ASSISTANT Unavailable Unavailable Law, Reyna LICENSED PHYSICAL THERAPIST ASSISTANT Unavailable Unavailable Law, Reyna LICENSED PHYSICAL THERAPIST ASSISTANT Unavailable Unavailable Law, Reyna LICENSED PHYSICAL THERAPIST ASSISTANT Unavailable Unavailable Law, Reyna LICENSED PHYSICAL THERAPIST ASSISTANT Unavailable Unavailable Law, Reyna LICENSED PHYSICAL THERAPIST ASSISTANT Unavailable Unavailable Re-disclosure Warning The records that [...] is protected by Article 27-F of the [facility] Public Health law. If you continue you may have access to information: Regarding HIV / AIDS; Provided by facilities licensed or operated by the [facility] Office of Mental Health; or Provided by the [facility] Office for People With Developmental Disabilities. If such information is present, then the following [facility] mandated warning applies: This information has been [...] law may result in a fine or shelter sentence or both. A general authorization for the release of medical or other information is NOT sufficient authorization for further disc losure. Allergies and Adverse Reactions Type Description Substance Reaction Status Data Source(s ) No Known Allergies No Known Allergies [facility] SYSTEMIC NO ALLERGIES ON FILE NO ALLERGIES ON FILE [facility] Family History Family Member Name Family Member Gender Family Member Status Date o f Status Description Data Source(s) Unknown Male Problem MEDENT ([facility]) Encounters Encounter Providers Location Date Indications Data Source(s ) O Attender: Kevin RAINES 05/19/19 08:23:28 AM EST - 05/19/2020 08:44:33 AM EST [facility] ([facility] ) O Attender: Kevin RAINES 05/16/19 09:04:35 AM EST - 05/16/2020 09:28:06 AM EST [facility] ([facility] ) [place] [address] [address] 04/14/2020 12:00:00 AM EST eCW1 ([facility]) [place] [address] [address] 02/16/2020 12:00:00 AM EST eCW1 ([facility]) Outpatient Attender: CHARLES CARRILLO CDN, RDConsultant: Joon Diez DO 11/24/2019 12:47:00 PM EDT - 11/24/2019 12:47:00 PM EDT [facility] Outpatient Attender: ANDRES BANKS NP Family [facility] 11/04/2019 09 :00:00 AM EDT MEDENT ([facility]) Outpatient Attender: ANDRES BANKS NPConsultant: Joon Diez DO 11/04/2019 08:54:00 AM EDT - 11/04/2019 08:54:00 AM EDT [facility] [place]patient [address] [address] 09/19/2019 12:00:00 AM EDT eCW1 ([facility]) Outpatient Attender: Reyna Ogden NP 09/15/2019 09:22:00 AM EDT E07.89 [facility] E07.89 OUTPATIENT Attender: Reyna Ogden NPReferrer: Reyna Ogden NP [id number] 06/06/2019 01:18:00 PM EST - 06/06/2019 11:59:00 PM EST [facility] Patient discharged. 06/06/2019 01:17:55 PM [facility] Attender: Reyna Ogden NP 2E-TW 06/06/2019 01:10:32 PM [facility] 06/06/2019 01:10:22 PM [facility] Outpatient Attender: Reyna Ogden NP 06/04/2019 07:16 :00 AM EST Z13.220,Z76.89,R53.82,E78.5,I10,Z13.1 [facility] Z13.220,Z76.89,R53.82,E78.5,I10,Z13.1 Outpatient Attender: ANDRES BANKS NP 05/20/2019 11:52:00 AM EST N76.0 [facility] N76.0 Outpatient Attender: ANDRES BANKS NPConsultant: Joon Diez DO 05/20/2019 10:33:00 AM EST - 05/20/2019 10:33:00 AM EST [facility] Outpatient Attender: ANDRES BANKS LICENSED PHYSICAL THERAPIST ASSISTANT Family Practice 05/20/2019 09 :30:00 AM EST MEDENT ([facility]) Outpatient 04/01/2019 06:26:00 AM EST [...] {application} active Ammonium Lactate 12 % eCW1 ([facility]) ammonium lactate 120 MG/ML Topical Lotion Ammonium [place] k[place] 12 % Ammonium Lactate 12 % 02/16/2020 12:00:00 AM EST 1.0 {application} active Ammonium Lactate 12 % eCW1 ([facility]) ammonium lactate 120 MG/ML Topical Lotion Ammonium [place] 12 % Ammonium Lactate 12 % 02/16/2020 12:00:00 AM EST 1.0 {application} active Ammonium Lactate 12 % eCW1 ([facility]) ammonium lactate 120 MG/ML Topical Lotion Ammonium [place] 12 % Ammonium Lactate 12 % 02/16/2020 12:00:00 AM EST 1.0 {application} active Ammonium Lactate 12 % eCW1 ([facility]) 20 mg 01/16/2020 12:00:00 AM EDT tablet [...] 05/26/2019 12:00:00 AM EST ORAL completed MEDENT ([facility]) Metronidazole 500 MG Oral Tablet Metronidazole 05/20/2019 12:00:00 AM EST ORAL completed MEDENT ([facility]) 500 mg 05/19/2019 12:00:00 AM EST tablet [...] type / Coverage type Policy ID Covered constitution party ID Covered constitution party's relationship to dao Policy Dao Plan Information [employer] [id number] SP [id number] [employer] [id number] Self [id number] [place] [id number] 18 [id number] [place] MAN -PHYSICIAN CO [id number] 18 [id number] [employer] [id number] [employer] [id number] Self [id number] [place] [id number] S [id number] H[employer]YIN [id number] SP [id number] [employer] [id number] SP [id number] [place] [facility] [place] XIX Commercial [id number] Self [id number] [employer]IN [id number] SP [id number] [employer] [place] PPO 302/[id number] SP [id number] [facility] [id number] Problems, Conditions, and Diagnoses Code Display Name Description Problem Type Effective Dates Data Source(s) Z713 Dietary counseling and surveillance Dietary coun seling and surveillance Diagnosis 11/24/2019 12:47:00 PM EDT [facility] Z6826 Body mass index (BMI) 26.0-26.9, adult B heydi mass index (BMI) 26.0-26.9, adult Diagnosis 11/24/2019 12:47:00 PM EDT [facility] E663 Overweight Overweight Diagnosis 11/24/2019 12:47:00 PM ED T [facility] [id number] Encounter for gynecological examination (general) (routine) without abnormal findings Encounter for gynecological examination (general) (routine) without abnormal findings Diagnosis 11/04/2019 08:54:00 AM EDT [facility] R31.9 Hematuria, unspecified Hematuria, unspecified Diagnosi s 06/06/2019 01:18:25 PM [facility] N39.0 Urinary tract infection, site not specif ied Urinary tract infection, site not specified Diagnosis 06/06/2019 01:18:25 PM [facility] N760 Acute vaginitis Acute vaginitis Diagnosis 05/20/2019 10:3 3:00 AM [facility] Results ID Date Data Source [id number] 11/04/2019 09:36:00 AM EDT MEDENT ([facility]) Name Value Range Interpretation Code Description Data Rylie rce(s) Supporting Document(s) Mammo Screening Bilateral with CAD Laboratory test result [facility]) ID Date Data Source [id number] 09/15/2019 10:33:00 AM EDT [facility] Name Value Range Interpretation Code Description Data Rylie rce(s) Supporting Document(s) Thyroxine (T4) free [Mass/volume] in Serum or Plasma 0.92 ng/dL 0.89- 1.76 N [facility] ID Date Data Source [id number] 09/16/2019 08:08:00 AM EDT [facility] Name Value Range Interpretation Code Description Data Rylie rce(s) Supporting Document(s) TRIIODOTHYRONINE, FREE, SERUM 3.2 pg/mL 2.0-4.4 [facility] Performed at: RN - [facility] [address] [id number] Director: Camryn Brandt MD, Phone: [phone] ID Date Data Source [id number] 09/15/2019 10:33:00 AM EDT [facility] Name Value Range Interpretation Code Description Data Rylie rce(s) Supporting Document(s) Thyrotropin [Units/volume] in Serum or Plasma by Detec tion limit <= 0.005 mIU/L 0.95 u[iU]/mL 0.35-5.50 [facility] Date Data Source [id number] 06/07/2019 03:09:00 PM [facility] Name Value Range Interpretation Code Description Data Rylie rce(s) Supporting Document(s) Culture Result No Growth [facility] The above 1 analytes were performed by [facility] [id number], ,[place] [address] ID Date Data Source [id number] 06/04/2019 08:24:00 AM EST [facility] @06/04/19 0806: UA W/ MICRO added. RFLXG = UMIC.Method of Collection:: Voided @06/04/19 0806: UA W/ MICRO added. RFLXG = UMIC.Method of Collection:: Voided Name Value Range Interpretation Code Description Data Rylie rce(s) Supporting Document(s) Leukocytes [#/volume] in Blood by Automated count 6.6 10*3/uL 4.45-10 .71 N [facility] Erythrocytes [#/volume] in Blood by Automated count 4.41 10*6/uL 4.20 -5.40 N [facility] Hemoglobin [Moles/volume] in Blood 13.7 g/dL 10.7-15.4 [facility] Hematocrit [Volume Fraction] of Blood by Automated count 42.4 % 3 7-47 N [facility] Erythrocyte mean corpuscular volume [Ent itic volume] in Cord blood by Automated count 96.1 fL 80-96 Above high normal [facility] Erythrocyte mean corpuscular hemoglobin [Entitic mass] by Automated count 31.1 pg 27-31 Above high normal [facility] Erythrocyte mean corpuscular hemoglobin concentration [Mass/volume] in Cord blood 32.3 g/dL 33-37 Below low normal [facility] Erythrocyte distribution width [Entitic volume] by Automated count 13 % 11-15 N [facility] Platelets [#/volume] in Blood by Automated count 263 10*3/uL 130-472 N [facility] Platelet mean volume [Entitic volume] in Blood 10.3 fL 9.1-13.1 N [facility] Neutrophils/100 leukocytes in Blood by Automated count 59.5 % 41- 77 N [facility] Neutrophils [#/volume] in Blood by Automated count 3.9 U 1.7-7.6 N [facility] Lymphocytes/100 leukocytes in Blood by Automated count 30.9 % 14- 46 N [facility] Lymphocytes [#/volume] in Blood by Automated count 2.0 U 0.6-4.6 N [facility] Monocytes/100 leukocytes in Blood by Automated count 6.1 % 4-12 N [facility] Monocytes [#/volume] in Blood by Automated count 0.4 U 0.2-1.2 N [facility] Eosinophils/100 leukocytes in Blood by Automated count 2.7 % 0-7 N [facility] Eosinophils [#/volume] in Blood by Automated count 0.2 U 0.0-0.5 N [facility] Basophils/100 leukocytes in Blood by Automated count 0.5 % 0.4-1 .3 N [facility] Basophils [#/volume] in Blood by Automated count 0.0 U 0.0-0.2 N [facility] NUCLEATED RED BLOOD CELL 0 % [facility] NUCLEATED RED BLOOD CELL# 0 U [facility] Immature granulocytes [Presence] in Blood by Automated count 0-2 N [facility] Immature granulocytes [#/volume] in Blood by Automated count 0.0 U 0-0.1 N [facility] Manual Differential panel - Blood NO [facility] ID Date Data Source [id number] 06/04/2019 08:42:00 AM EST [facility] @06/04/19 0806: UA W/ MICRO added. RFLXG = UMIC.Method of Collection:: Voided @06/04/19 0806: UA W/ MICRO added. RFLXG = UMIC.Method of Collection:: Voided Name Value Range Interpretation Code Description Data Rylie [facility](s) Supporting Document(s) Hemoglobin A1c % 5.9 % 4.0-6.0 N [facility] The following ranges may be u sed for interpretation of results: HGBA1C degree of glucose control: Greater than 8%: Action Suggested * Less than 7%: Goal of Diabetic Therapy Less than 6%: NormalFactors such as duration of diabetes, adherence to therapyand the age of the patient should also be considered inassessing the degree of blood glucose control.* High risk of developing intermediate teacher complications such asretinopathy, nephropathy, neuropathy, cardiopathy, etc. Some danger of hypoglycemic reaction in Type I diabetics.Some glucose intolerant individuals and "Sub Clinical"diabetics may demonstrate HGBA1C levels in this area. Glucose mean value [Moles/volume] in Blood Estimated f rom glycated hemoglobin 123 mg/dL [facility] l An A1C of 7% - the goal of diabetic ther apy - is equivalentto an EAG of 154 mg/dl. ID Date Data Source [id number] 06/04/2019 09:03:00 AM EST [facility] @06/04/19 0806: UA W/ MICRO added. RFLXG = UMIC.Method of Collection:: Voided @06/04/19 0806: UA W/ MICRO added. RFLXG = UMIC.Method of Collection:: Voided Name Value Range Interpretation Code Description Data [facility](s) Supporting Document(s) Urea nitrogen [Mass/volume] in Serum or Plasma 21 mg/dL 9-23 N [facility] Sodium [Moles/volume] in Serum or Plasma 138 mmol/L 132-146 N [facility] Potassium [Moles/volume] in Serum or Plasma 4.6 mmol/L 3.5-5.5 [facility] Chloride [Moles/volume] in Serum or Plasma 105 mmol/L 99-109 N [facility] Carbon dioxide, total [Moles/volume] in Serum or Plasma 30 mmol/L 20 -31 N [facility] Anion gap in Serum or Plasma 8 mmol/L 8-16 N [facility] Glucose [Mass/volume] in Serum or Plasma 101 mg/dL 74-106 N [facility] Creatinine 0.7 mg/dL 0.5-1.1 [facility] Glomerular filtration rate/1.73 sq M.pre dicted [Volume Rate/Area] in Serum or Plasma Greater Than 60 ABOVE 60 [facility] Alanine aminotransferase [Enzymatic acti vity/volume] in Serum or Plasma by With P-5'-P 42 U/L 10-49 N [facility] ital Aspartate aminotransferase [Enzymatic ac tivity/volume] in Serum or Plasma by With P-5'-P 23 U/L 0-33 N [facility] pital Alkaline phosphatase [Enzymatic activity/volume] in Serum or Plasma 112 U/L 45-129 [facility] Calcium [Mass/volume] in Serum or Plasma 8.5 mg/dL 8.5-10.1 [facility] Bilirubin.total [Mass/volume] in Serum or Plasma 0.4 mg/dL 0.3-1.2 [facility] Albumin [Mass/volume] in Serum or Plasma by Bromocresol purple (BCP) dye binding method 3.6 g/dL 3.2-4.8 [facility] ital Protein [Mass/volume] in Serum or Plasma 7.0 g/dL 5.7-8.2 [facility] ID Date Data Source [id number] 06/05/2019 02:07:00 PM [facility] @06/04/19 0806: UA W/ MICRO added. RFLXG = UMIC.Method of Collection:: Voided @06/04/19 0806: UA W/ MICRO added. RFLXG = UMIC.Method of Collection:: Voided Name Value Range Interpretation Code Description Data Rylie rce(s) Supporting Document(s) Parathyrin.intact [Mass/volume] in Serum or Plasma 24 pg/mL 15-65 [facility] Performed at: RN - [facility] [address] [id number] Director: Camryn Brandt MD, Phone: [phone] ID Date Data Source [id number] 06/04/2019 09:03:00 AM [facility] @06/04/19 0806: UA W/ MICRO added. RFLXG = UMIC.Method of Collection:: Voided @06/04/19 0806: UA W/ MICRO added. RFLXG = UMIC.Method of Collection:: Voided Name Value Range Interpretation Code Description Data Rylie rce(s) Supporting Document(s) Triglycerides 87 mg/dL 0-150 N [facility] Cholesterol 194 mg/dL 120-200 N [facility] HDL Cholesterol 63 mg/dL [facility] HDL Less than 40 mg/dL: Major risk for CHDHDL Greater than 59 mg/dL: Low risk for CHD LDL Cholesterol, Calc 114 mg/dL 0-100 Above high normal [facility] ID Date Data Source [id number] 06/05/2019 02:07:00 PM [facility] @06/04/19 0806: UA W/ MICRO added. RFLXG = UMIC.Method of Collection:: Voided @06/04/19 0806: UA W/ MICRO added. RFLXG = UMIC.Method of Collection:: Voided Name Value Range Interpretation Code Description Data Rylie rce(s) Supporting Document(s) 25-Hydroxyvitamin D2+25-Hydroxyvitamin D3 [Mass/volume ] in Serum or Plasma 43.0 ng/mL 30.0-100.0 [facility] Vitamin D deficiency has been defined by the Bishop ofMedicine and an Endocrine Society practice guideline as alevel of serum 25-OH vitamin D less than 20 ng/mL (1,2).The Endocrine Society went on to further define vitamin Dinsufficiency as a level between 21 and 29 ng/mL (2).1. IOM (Bishop of [employer]). 2010. Dietary reference intakes for calcium and D. [place]: The National Academies Press.2. Edson MF, Feroz NC, Davin MONIQUE, et al. Evaluation, treatment, and prevention of vitamin D deficiency: an Endocrine Society clinical practice guideline. JCEM. 2010; 96(7):1911- 30.Performed at: RN - [facility] [place] [id number] Director: Camryn Brandt MD, Phone: [phone] ID Date Data Source [id number] 06/04/2019 09:03:00 AM [facility] @06/04/19 0806: UA W/ MICRO added. RFLXG = UMIC.Method of Collection:: Voided @06/04/19 0806: UA W/ MICRO added. RFLXG = UMIC.Method of Collection:: Voided Name Value Range Interpretation Code Description Data Rylie rce(s) Supporting Document(s) Magnesium [Mass/volume] in Serum or Plasma 2.1 mg/dL 1.3-2.7 N [facility] ID Date Data Source [id number] 06/04/2019 09:03:00 AM [facility] @06/04/19 0806: UA W/ MICRO added. RFLXG = UMIC.Method of Collection:: Voided @06/04/19 0806: UA W/ MICRO added. RFLXG = UMIC.Method of Collection:: Voided Name Value Range Interpretation Code Description Data Rylie rce(s) Supporting Document(s) Thyroxine (T4) free [Mass/volume] in Serum or Plasma 0.86 ng/dL 0.89-1.76 Below low normal [facility] ID Date Data Source [id number] 06/04/2019 09:03:00 AM [facility] @06/04/19 0806: UA W/ MICRO added. RFLXG = UMIC.Method of Collection:: Voided @06/04/19 0806: UA W/ MICRO added. RFLXG = UMIC.Method of Collection:: Voided Name Value Range Interpretation Code Description Data Rylie rce(s) Supporting Document(s) Thyrotropin [Units/volume] in Serum or Plasma by Detec tion limit <= 0.005 mIU/L 0.85 u[iU]/mL 0.35-5.50 [facility] al ID Date Data Source [id number] 06/04/2019 08:16:00 AM [facility] @06/04/19 0806: UA W/ MICRO added. RFLXG = UMIC.Method of Collection:: Voided @06/04/19 0806: UA W/ MICRO added. RFLXG = UMIC.Method of Collection:: Voided Name Value Range Interpretation Code Description Data Rylie rce(s) Supporting Document(s) Color of Urine [facility] Appearance of Urine CLEAR [facility] pH of Urine by Test strip 5.0 5-8 [facility] Specific gravity of Urine by Refractometry 1.020 1.005-1.030 [facility] Leukocyte esterase [Presence] in Urine by Test strip NEGAT ANNIE [facility] Nitrite [Presence] in Urine by Test strip NEGATIVE [facility] Protein [Presence] in Urine by Test strip NEGATIVE [facility] Glucose [Mass/volume] in Urine by Automated test strip NEGATIVE NEG ATIVE [facility] Ketones [Presence] in Urine by Test strip NEGATIVE [facility] Urobilinogen [Presence] in Urine 0.2-1 EU/dl [facility] Bilirubin.total [Presence] in Urine by Automated test strip NEGATIVE [facility] Erythrocytes [#/volume] in Urine by Test strip MODERATE N EGATIVE Above high normal [facility] @DO MICRO!!!! URINE MICROSCOPIC ADDED Microscopic Added [facility] ID Date Data Source [id number] 06/04/2019 08:16:00 AM EST [facility] @06/04/19 0806: UA W/ MICRO added. RFLXG = UMIC.Method of Collection:: Voided @06/04/19 0806: UA W/ MICRO added. RFLXG = UMIC.Method of Collection:: Voided Name Value Range Interpretation Code Description Data Rylie rce(s) Supporting Document(s) Erythrocytes [#/volume] in Urine by Manual count 1-2 /hpf 0-5 [facility] Cells [Type] in Urine sediment by Light microscopy [facility] ID Date Data Source [id number] 05/20/2019 11:52:00 AM EST [facility] ([facility]) Name Value Range Interpretation Code Description Data Rylie rce(s) Supporting Document(s) Trimethoprim/Sulfamethoxazole Laboratory test result Susceptible. Indicates for microbiology susceptibilities only. [facility] ([facility]) N76.0 Ampicillin+Sulbactam [Susceptibility] by Minimum inhib itory concentration (HAROON) Laboratory test result Susceptible. Indicates for m icrobiology susceptibilities only. [facility] ([facility]) N76.0 Amoxicillin+Clavulanate [Susceptibility] by Minimum inhibitory concentration (HAROON) Laboratory test result Susceptible. Mary cates for microbiology susceptibilities only. [facility] ([facility]) N76.0 Ampicillin [Susceptibility] by Minimum inhibitory conc entration (HAROON) Laboratory test result Susceptible. Indicates for microbiology suscepti bilities only. [facility] ([facility]) N76.0 Ciprofloxacin [Susceptibility] by Minimum inhibitory c oncentration (HAROON) Laboratory test result Susceptible. Indicates for m icrobiology susceptibilities only. [facility] ([facility]) N76.0 Ceftriaxone [Susceptibility] by Minimum inhibitory con centration (HAROON) Laboratory test result Susceptible. Indicates for m icrobiology susceptibilities only. [facility] ([facility]) N76.0 Cefotaxime [Susceptibility] by Minimum inhibitory conc entration (HAROON) Laboratory test result Susceptible. Indicates for microbiology suscepti bilities only. [facility] ([facility]) N76.0 Imipenem [Susceptibility] by Minimum inhibitory concen tration (HAROON) Laboratory test result Susceptible. Indicates for microbiology suscepti bilities only. [facility] ([facility]) N76.0 Gentamicin [Susceptibility] by Minimum inhibitory conc entration (HAROON) Laboratory test result Susceptible. Indicates for microbiology suscepti bilities only. [facility] ([facility]) N76.0 Ertapenem [Susceptibility] by Minimum inhibitory iman ntration (HAROON) Laboratory test result Susceptible. Indicates for microbiology suscepti bilities only. [facility] ([facility]) N76.0 Tetracycline [Susceptibility] by Minimum inhibitory co ncentration (HAROON) Laboratory test result Susceptible. Indicates for m icrobiology susceptibilities only. [facility] ([facility]) N76.0 Nitrofurantoin [Susceptibility] by Minimum inhibitory concentration (HAROON) Laboratory test result Susceptible. Indicates for m icrobiology susceptibilities only. [facility] ([facility]) N76.0 Tobramycin [Susceptibility] by Minimum inhibitory conc entration (HAROON) Laboratory test result Susceptible. Indicates for microbiology suscepti bilities only. [facility] ([facility]) N76.0 Levofloxacin [Susceptibility] by Minimum inhibitory co ncentration (HAROON) Laboratory test result Susceptible. Indicates for m icrobiology susceptibilities only. [facility] ([facility]) N76.0 Cefepime [Susceptibility] by Minimum inhibitory concen tration (HAROON) Laboratory test result Susceptible. Indicates for microbiology suscepti bilities only. [facility] ([facility]) N76.0 Piperacillin+Tazobactam [Susceptibility] by Minimum inhibitory concentration (HAROON) Laboratory test result Susceptible. Mary cates for microbiology susceptibilities only. [facility] ([facility]) N76.0 ID Date Data Source [id number] 05/20/2019 11:52:00 AM EST [facility] ([facility]) Name Value Range Interpretation Code Description Data Rylie rce(s) Supporting Document(s) Bacteria identified in Urine by Culture Laboratory test result [facility] ([facility]) N76.0 ID Date Data Source [id number] 05/20/2019 11:52:00 AM EST [facility] ([facility]) Name Value Range Interpretation Code Description Data Rylie rce(s) Supporting Document(s) Bacteria identified in Urine by Culture Laboratory test result [facility] ([facility]) N76.0 [place] count Laboratory test result [facility] ([facility]) N76.0 ID Date Data Source [id number] 05/20/2019 11:52:00 AM EST [facility] ([facility]) Name Value Range Interpretation Code Description Data Rylie rce(s) Supporting Document(s) [facility] Urine Culture Laboratory test result [facility] ([facility]) .~.~N76.0 ID Date Data Source [id number] 05/26/2019 07:02:00 AM EST [facility] Name Value Range Interpretation Code Description Data Rylie rce(s) Supporting Document(s) [facility] URINE CULTURE [facility] _CULTURE URINE_ Result: TEST PERFORMED AT [address] [address] CLIA# [id number] SEE SCANNED REPORT ID Date Data Source [id number] 05/20/2019 11:51:00 AM EST [facility] ([facility]) Name Value Range Interpretation Code Description Data Rylie rce(s) Supporting Document(s) [facility] [place] Laboratory test result [facility] ([facility]) ID Date Data Source [id number] 05/20/2019 10:38:00 AM EST [facility] ([facility]) Name Value Range Interpretation Code Description Data Rylie rce(s) Supporting Document(s) Appearance of Urine Laboratory test result [facility] ([facility]) Spec [place] 1.020 [facility] ([facility]) Color of Urine Laboratory test result [facility] ([facility]) pH of Urine by Test strip 5 MEDE NT ([facility]) Nitrate [Presence] in Urine Laboratory test result [facility] ([facility]) Leukocytes Laboratory test result [facility] ([facility]) Urobilinogen Laboratory test result [facility] ([facility]) Inhouse Glucose Laboratory test result [facility] ([facility]) Ketones [Presence] in Urine by Test strip Laboratory test result [facility] ([facility]) Protein [Presence] in Urine by Test strip Laboratory test result [facility] ([facility]) Bilirubin.total [Presence] in Urine by Test strip Laboratory test res ult [facility] ([facility]) Blood type and Indirect antibody screen panel - Blood 50 [facility] ([facility]) Procedure Social History Code Duration Value Status Description Data Source(s ) Smoking 02/16/2020 12:00:00 AM EST Never Smoker completed Never S moker eCW1 ([facility]) Smoking 02/16/2020 12:00:00 AM EST Never Smoker completed Never S moker eCW1 ([facility]) Smoking 09/19/2019 12:00:00 AM EDT Never Smoker completed Never S jyotiker eCW1 ([facility]) Vital Signs ID Date Data Source [id number] Name Value Range Interpretation Code Description Data Source(s) Diastolic blood pressure 74 mm[Hg] 74 mm[Hg] eCW1 ([facility]) Systolic blood pressure 126 mm[Hg] 126 mm[Hg] e CW1 ([facility]) Body mass index (BMI) [Ratio] 26.79 kg/m2 26.79 kg/m2 [facility] ([facility]) Body height 65 [in_i] 65 [in_i] W1 ([facility]) Body weight 161 [lb_av] 161 [lb_av] W1 ([facility]) Body surface area 1.77 m2 1.77 m2 [facility] ([facility]) Body mass index (BMI) [Ratio] 26.4 kg/m2 26.4 k g/m2 [facility] ([facility]) Body height 64.5 [in_i] 64.5 [in_i] [facility] ([facility]) 5'4.50" Body weight 70.762 kg 70.762 kg [facility] ([facility]) Body weight 156.00 [lb_av] 156.00 [lb_av] MEDEN T ([facility]) Body temperature 98.2 [degF] 98.2 [degF] [facility] ([facility]) Heart rate 58 /min 58 /min [facility] ([facility]) Diastolic blood pressure 64 mm[Hg] 64 mm[Hg] [facility] ([facility]) Systolic blood pressure 117 mm[Hg] 117 mm[Hg] M EDENT ([facility]) Diastolic blood pressure 78 mm[Hg] 78 mm[Hg] [facility] ([facility]) Systolic blood pressure 124 mm[Hg] 124 mm[Hg] e CW1 ([facility]) Body mass index (BMI) [Ratio] 26.12 kg/m2 26.12 kg/m2 [facility] ([facility]) Body height 65 [in_i] 65 [in_i] eCW1 ([facility]) Body weight 157 [lb_av] 157 [lb_av] eCW1 ([facility]) Body surface area 1.80 m2 1.80 m2 [facility] ([facility]) Body mass index (BMI) [Ratio] 25.2 kg/m2 25.2 k g/m2 [facility] ([facility]) Body height 66 [in_i] 66 [in_i] [facility] ([facility]) 5'6" Body weight 70.762 kg 70.762 kg [facility] ([facility]) Body weight 156.00 [lb_av] 156.00 [lb_av] MEDEN T ([facility]) Heart rate 68 /min 68 /min [facility] ([facility]) Diastolic blood pressure 76 mm[Hg] 76 mm[Hg] [facility] ([facility]) Systolic blood pressure 128 mm[Hg] 128 mm[Hg] M EDENT ([facility]) Patient Treatment Plan of Care Planned Activity Planned Date Details Description Data Source (s) ammonium lactate 120 MG/ML Topical Lotion 02/16/2020 12:00:00 AM ES T eCW1 ([facility]) ammonium lactate 120 MG/ML Topical Lotion 02/16/2020 12:00:00 AM ES T eCW1 ([facility]) ammonium lactate 120 MG/ML Topical Lotion 02/16/2020 12:00:00 AM ES T eCW1 ([facility]) ammonium lactate 120 MG/ML Topical Lotion 02/16/2020 12:00:00 AM ES T eCW1 ([facility])
--- NOTE | 2020-05-21 08:05 | ECGEPIP ---
[facility] - ED Test Date: 2020-05-19 Pat Name: KAREL CHAPA Department: Room: - Gender: Female [employer] Registrar: : [id number] Requested By: ANDREE Marc Order Number: [id number] Reading MD: Farheen Graves Measurements Intervals Challenge Rate: 67 P: 43 AR: 158 QRS: -3 QRSD: 86 T: 30 QT: 390 QTc: 412 Interpretive Statements Normal sinus rhythm No prior Electronically Signed on 05-21-2020 8:05:16 EST by Farheen Graves
== END 2020-05-19 13:49 | disposition home or self-care (01) ==
LOC: M ED 09:06 → SMC HOSP 13:59
DX: U07.1 COVID-19 (principal); I10 Essential (primary) hypertension; K21.9 Gastro-esophageal reflux disease without esophagitis; Z79.899 Other long term (current) drug therapy
CPT/HCPCS: 71045; 80048; 80076; 81001; 83605; 83880; 84443; 85025; 85379; 85610; 87798; 93005; 93041; 94760; 96374; 99284; J2405

== ENCOUNTER 2020-05-19 14:04 | Outpatient (CLI) | payer OTHER ==
--- NOTE | 2020-05-19 13:06 | IPNPDOC ---
Date Seen The patient was seen on 05/19/20. Progress Note Patient presented to the emergency room today with flu like symptoms, was found to be COVID positive. She elected to undergo bamlanivimab infusion. I discussed the risks and benefits of this medication with her in detail. After being adequately informed she elected to undergo the infusion at this time. Her initial symptoms began roughly one to 2 weeks ago, consistent with cough productive of mild sputum. She had no other associated symptoms. Denies any dyspnea, chest pain, vomiting, abdominal pain or diarrhea. She is currently sat urating well on room air. She is hemodynamically stable to undergo this treatment. Patient will be monitored closely for any adverse effects and if she remains asymptomatic and hemodynamically stable post infusion then she will be discharged home. On my examination, patient had mild rhonchi. Otherwise a benign and normal examination. MERLENE CAMARENA MD May 19, 2020 13:06
[2020-05-19 13:48] VITALS: BP 153/75
[~2020-05-19 14:04] MED LIST changes: +ALBUTEROL 90 MCG/ACT 8GM HFA INHALER INH PRN; +ALBUTEROL SULFATE 2.5 MG/0.5 ML INH NEB SOLN INH PRN; +EPINEPHrine INJ 1 MG/ML 1ML AMP IM PRN; +NS 1,000 ML IV SCH; +diphenhydrAMINE 50MG/ML VIAL (J1200) IV PRN; +methylPREDNISolone 125MG 2ML VIAL IV PRN
[2020-05-19] MEDS ORDERED: diphenhydrAMINE 25MG CAP PO ONE (14:30)
[2020-05-19] MEDS ORDERED: ACETAMINOPHEN TAB 650MG DOSE (2X325MG) PO ONE (14:30)
[2020-05-19 14:41] VITALS: BP 157/74
[2020-05-19] MEDS ORDERED: BAMLANIVIMAB 700 MG in NS 250 ML IV ONE (15:00)
[2020-05-19 15:10] VITALS: BP 148/76
[2020-05-19 15:44] VITALS: BP 155/84
[2020-05-19 15:47] VITALS: BP 155/84
[2020-05-19 16:47] VITALS: BP 158/77
== END 2020-05-19 16:57 ==
LOC: M 4MAIN 14:04 → M OPCLI4 14:04
PROVIDERS: ATTEND Internal Medicine
DX: U07.1 COVID-19 (principal)

== ENCOUNTER → 2022-05-26 | Outpatient (CLI) | payer MEDICARE ==
[~2022-05-26] MED LIST changes: -ALBUTEROL 90 MCG/ACT 8GM HFA INHALER INH PRN; -ALBUTEROL SULFATE 2.5 MG/0.5 ML INH NEB SOLN INH PRN; -EPINEPHrine INJ 1 MG/ML 1ML AMP IM PRN; -NS 1,000 ML IV SCH; -diphenhydrAMINE 50MG/ML VIAL (J1200) IV PRN; -methylPREDNISolone 125MG 2ML VIAL IV PRN
== END ==
LOC: M RAD 13:46
PROVIDERS: ATTEND Nurse Practitioner Adult Health
DX: E04.1 Nontoxic single thyroid nodule (principal)

== ENCOUNTER → 2022-06-12 | Outpatient (CLI) | payer MEDICARE, OTHER ==
[2022-06-12 12:38] LABS: BASO # 0.1 10^3/uL (0.0-0.2); BASO % 0.6 % (0.0-1.0); EOS # 0.2 10^3/uL (0.0-0.5); EOS % 2.8 % (0.0-3.0); HEMATOCRIT 44.4 % (36.0-47.0); HEMOGLOBIN 14.1 g/dl (12.0-15.5); LYMPH # 2.2 10^3/uL (1.5-5.0); LYMPH % 26.9 % (24.0-44.0); MEAN CORPUSCULAR HEMOGLOBIN 31.1 pg (27.0-33.0); MEAN CORPUSCULAR HGB CONC 31.8 g/dl (32.0-36.5); MONO # 0.6 10^3/uL (0.0-0.8); MONO % 6.7 % (2.0-8.0); NEUTROPHILS # 5.2 10^3/uL (1.5-8.5); NEUTROPHILS % 62.8 % (36.0-66.0); PLATELET COUNT, AUTOMATED 230 10^3/uL (150-450); RED BLOOD COUNT 4.53 10^6/uL (4.00-5.40); WHITE BLOOD COUNT 8.2 10^3/uL (4.0-10.0)
[2022-06-12 12:56] LABS: BLOOD UREA NITROGEN 15 MG/DL (9-23); CALCIUM LEVEL 8.9 MG/DL (8.3-10.6); CARBON DIOXIDE LEVEL 32 MMOL/L (20-31); CHLORIDE LEVEL 103 MMOL/L (98-107); CHOLESTEROL LEVEL 157 MG/DL (<200); CHOLESTEROL RISK RATIO 2.58 (<5); CREATININE FOR GFR 0.72 MG/DL (0.55-1.30); GLOMERULAR FILTRATION RATE > 60.0 (>45); GLUCOSE, FASTING 93 MG/DL (74-106); HDL CHOLESTEROL 60.8 MG/DL (>40); LDL CHOLESTEROL 69.6 MG/DL (<100); NON-HDL-C 96.2 MG/DL; POTASSIUM SERUM 4.5 MMOL/L (3.5-5.1); SODIUM LEVEL 138 MMOL/L (136-145); TRIGLYCERIDES LEVEL 133 MG/DL (<150)
[2022-06-12 12:57] LABS: FREE T3 3.8 PG/ML (2.3-4.2); THYROID STIMULATING HORMONE 0.891 uIU/ML (0.55-4.78); TOTAL 25(OH) VITAMIN D 61.3 NG/ML (20.0-100.0)
[2022-06-12 12:58] LABS: FREE T4 1.09 NG/DL (0.89-1.76)
[2022-06-12 14:10] LABS: HEMOGLOBIN A1c 5.9 % (4.0-6.0)
== END ==
LOC: M RAD 11:06
PROVIDERS: ATTEND Nurse Practitioner Adult Health
DX: Z13.1 Encounter for screening for diabetes mellitus (principal); I10 Essential (primary) hypertension; E03.9 Hypothyroidism, unspecified; M54.2 Cervicalgia; Z79.899 Other long term (current) drug therapy